=== PATIENT | female | born 1990 | race Caucasian/White ===

== ENCOUNTER → 2016-11-14 | Outpatient (CLI) | payer BC ==
[2016-11-14 11:00] LABS: CHLORIDE,CL 109 mmol/L (98-110); SODIUM,NA 140 mmol/L (136-146)
== END ==
LOC: MW.CHFP 10:14
PROVIDERS: ATTEND Physician Assistant
DX: R60.0 Localized edema (principal)
CPT/HCPCS: 36415; 80053

== ENCOUNTER 2016-11-30 16:25 | Emergency (ER) | payer BC ==
--- NOTE | 2016-11-30 17:51 | EDM.PDOC ---
ED HPI Behavioral Health - General Chief Complaint: Behavioral/Psych Stated Complaint: UNK Time Seen by Provider: 11/30/16 16:53 Source of Information: Reports: Patient Exam Limitations: Reports: No limitations - History of Present Illness INITIAL COMMENTS - FREE TEXT/NARRATIVE: HISTORY AND PHYSICAL: History of present illness: [18-year-old female with a history of depression recently switched from bupropion to Zoloft, now presents to the emergency department complaining of depression and suicidal ideation. Patient's depression has been worsening and she's been having thoughts of hurting herself. Patient had a plan to drive and get an accident intentionally or to poison herself with carbon monoxide. She has not done anything to hurt herself. Denies overdose or self injury. Denies drug abuse. Homicidal ideation. Review of systems: As per history of present illness and below otherwise all systems reviewed and negative. Past medical history: As per history of present illness and as reviewed below otherwise noncontributory. Surgical history: As per history of present illness and as reviewed below otherwise noncontributory. Social history: No reported history of drug or alcohol abuse. Family history: As per history of present illness and as reviewed below otherwise noncontributory. Physical exam: HEENT: Atraumatic, normocephalic, pupils reactive, negative for conjunctival pallor or scleral icterus, mucous membranes moist, throat clear, neck supple, nontender, trachea midline. Lungs: Clear to auscultation, breath sounds equal bilaterally, chest nontender. Heart: S1S2, regular, negative for clicks, rubs, or JVD. Abdomen: Soft, nondistended, nontender. Negative for masses or hepatosplenomegaly. Negative for costovertebral tenderness. Pelvis: Stable nontender. Genitourinary: Deferred. Rectal: Deferred. Extremities: Atraumatic, negative for cords or calf pain. Neurovascular unremarkable. Neuro: Awake, alert, oriented. Cranial nerves II through XII unremarkable. Cerebellum unremarkable. Motor and sensory unremarkable throughout. Exam nonfocal. Diagnostics: [] Therapeutics: [] Impression: [] Plan: [] Definitive disposition and diagnosis as appropriate pending reevaluation and review of above. - Related Data Allergies Allergy/AdvReac Type Severity Reaction Status Date / Time adapalene Allergy Cannot Verified 11/30/16 16:27 Remember sulfamethoxazole Allergy Swelling Verified 11/30/16 16:27 [From Bactrim] trimethoprim [From Bactrim] Allergy Swelling Verified 11/30/16 16:27 Home Medications: Home Meds Control 12/17/15 [History] ALPRAZolam [Xanax XR] 2 mg TID PRN 11/30/16 [History] QUEtiapine [SEROquel] 200 mg BEDTIME 11/30/16 [History] Sertraline [Zoloft] 100 mg DAILY 11/30/16 [History] Zolpidem [Ambien] 10 mg BEDTIME 11/30/16 [History] clonazePAM [Clonazepam] 1 mg PRN 11/30/16 [History] lamoTRIgine [Lamictal] BID 11/30/16 [History] Past Medical History Psychiatric History: Reports: Anxiety, Depression, Panic attack, Suicidal ideation - Past Surgical History HEENT Surgical History: Reports: Oral surgery GI Surgical History: Reports: Appendectomy Social & Family History - Family History Family Medical History: Noncontributory - Tobacco Use Smoking Status *Q: Never Smoker Second Hand Smoke Exposure: No - Caffeine Use Caffeine Use: Reports: Coffee - Recreational Drug Use Recreational Drug Use: No ED ROS GENERAL - Review of Systems Review Of Systems: See Below (CHPI) ED EXAM, BEHAVIORAL HEALTH - Physical Exam Exam: See Below (See history of present illness) COURSE, BEHAVIORAL HEALTH COMP - Course Vital Signs: Last Vital Signs Temp 37.0 C 11/30/16 16:49 Pulse 82 11/30/16 16:49 Resp 18 11/30/16 16:49 BP 116/57 L 11/30/16 16:49 Pulse Ox 97 11/30/16 16:49 Orders, Labs, Meds: Active Orders 24 hr Category Date Time Status ACETAMINOPHEN [CHEM] Stat Lab 11/30/16 18:05 Received COMPREHENSIVE METABOLIC PN,CMP [CHEM] Stat Lab 11/30/16 18:05 Received ETHANOL BLOOD MEDICAL [CHEM] Stat Lab 11/30/16 18:05 Received FREE T3 [REF] Stat Lab 11/30/16 18:05 Received MAGNESIUM [CHEM] Stat Lab 11/30/16 18:05 Received SALICYLATE [CHEM] Stat Lab 11/30/16 18:05 Received TSH [CHEM] Stat Lab 11/30/16 18:05 Received Laboratory Tests 03/11/30/16 11/30/16 Range/Units 18:05 18:05 18:23 WBC 4.72 (4.0-11.0) K/uL RBC 3.99 L (4.30-5.90) M/uL Hgb 11.8 L (12.0-16.0) g/dL Hct 36.1 (36.0-46.0) % MCV 90.5 (80.0-98.0) fL MCH 29.6 (27.0-32.0) pg MCHC 32.7 (31.0-37.0) g/dL RDW Std Deviation 43.2 (28.0-62.0) fl RDW Coeff of Charlie 13 (11.0-15.0) % Plt Count 218 (150-400) K/uL MPV 9.40 (7.40-12.00) fL Neut % (Auto) 54.4 (48.0-80.0) % Lymph % (Auto) 31.8 (16.0-40.0) % [place] % (Auto) 8.5 (0.0-15.0) % Eos % (Auto) 4.9 (0.0-7.0) % Baso % (Auto) 0.4 (0.0-1.5) % Neut # 2.6 (1.4-5.7) K/uL Lymph # 1.5 (0.6-2.4) K/uL [place] # 0.4 (0.0-0.8) K/uL Eos # 0.2 (0.0-0.7) K/uL Baso # 0.0 (0.0-0.1) K/uL Nucleated RBC % 0.0 /100WBC Nucleated RBCs # 0 K/uL Sodium 141 (136-146) mmol/L Potassium 4.1 (3.5-5.1) mmol/L Chloride 111 H (98-110) mmol/L Carbon Dioxide 23 (21-31) mmol/L BUN 13 (6.0-23.0) mg/dL Creatinine 0.8 (0.6-1.5) mg/dL Est Cr Clr Drug Dosing 101.81 mL/min Estimated GFR (MDRD) > 60.0 ml/min Glucose 95 (60-110) mg/dL Calcium 8.3 L (8.8-10.8) mg/dL Magnesium 1.4 L (1.5-2.3) mEq/L Total Bilirubin 0.3 (0.1-1.5) mg/dL AST 24 (5-40) IU/L ALT 22 (8-54) IU/L Alkaline Phosphatase 48 (40-150) Total Protein 6.5 (6.0-8.0) g/dL Albumin 3.5 (3.5-5.0) g/dL Globulin 3.0 (2.0-3.5) g/dL Albumin/Globulin Ratio 1.2 L (1.3-2.8) Urine Color Urine Appearance Urine pH (5.0-8.0) Ur Specific [place] (1.001-1.035) Urine Protein (NEGATIVE) mg/dL Urine Glucose (UA) (NEGATIVE) mg/dL Urine Ketones (NEGATIVE) mg/dL Urine Occult Blood (NEGATIVE) Urine Nitrite (NEGATIVE) Urine Bilirubin (NEGATIVE) Urine Urobilinogen (<2.0) EU/dL Ur Leukocyte Esterase (NEGATIVE) Urine RBC (0-2/HPF) Urine WBC (0-5/HPF) Ur Epithelial Cells (NONE-FEW) Urine Bacteria (NEGATIVE) Urine Opiates Screen NEGATIVE (NEGATIVE) Ur Oxycodone Screen NEGATIVE (NEGATIVE) Urine Methadone Screen NEGATIVE (NEGATIVE) Ur Barbiturates Screen NEGATIVE (NEGATIVE) Ur Phencyclidine Scrn NEGATIVE (NEGATIVE) Ur Amphetamine Screen NEGATIVE (NEGATIVE) U Methamphetamines Scrn NEGATIVE (NEGATIVE) U Benzodiazepines Scrn POSITIVE (NEGATIVE) U Cocaine Metab Screen NEGATIVE (NEGATIVE) U Marijuana (THC) Screen POSITIVE (NEGATIVE) Ethyl Alcohol < 10.0 mg/dL 11/30/16 Range/Units 18:23 WBC (4.0-11.0) K/uL RBC (4.30-5.90) M/uL Hgb (12.0-16.0) g/dL Hct (36.0-46.0) % MCV (80.0-98.0) fL MCH (27.0-32.0) pg MCHC (31.0-37.0) g/dL RDW Std Deviation (28.0-62.0) fl RDW Coeff of Charlie (11.0-15.0) % Plt Count (150-400) K/uL MPV (7.40-12.00) fL Neut % (Auto) (48.0-80.0) % Lymph % (Auto) (16.0-40.0) % [place] % (Auto) (0.0-15.0) % Eos % (Auto) (0.0-7.0) % Baso % (Auto) (0.0-1.5) % Neut # (1.4-5.7) K/uL Lymph # (0.6-2.4) K/uL [place] # (0.0-0.8) K/uL Eos # (0.0-0.7) K/uL Baso # (0.0-0.1) K/uL Nucleated RBC % /100WBC Nucleated RBCs # K/uL Sodium (136-146) mmol/L Potassium (3.5-5.1) mmol/L Chloride (98-110) mmol/L Carbon Dioxide (21-31) mmol/L BUN (6.0-23.0) mg/dL Creatinine (0.6-1.5) mg/dL Est Cr Clr Drug Dosing mL/min Estimated GFR (MDRD) ml/min Glucose (60-110) mg/dL Calcium (8.8-10.8) mg/dL Magnesium (1.5-2.3) mEq/L Total Bilirubin (0.1-1.5) mg/dL AST (5-40) IU/L ALT (8-54) IU/L Alkaline Phosphatase (40-150) Total Protein (6.0-8.0) g/dL Albumin (3.5-5.0) g/dL Globulin (2.0-3.5) g/dL Albumin/Globulin Ratio (1.3-2.8) Urine Color YELLOW Urine Appearance CLEAR Urine pH 6.0 (5.0-8.0) Ur Specific [place] 1.025 (1.001-1.035) Urine Protein NEGATIVE (NEGATIVE) mg/dL Urine Glucose (UA) NEGATIVE (NEGATIVE) mg/dL Urine Ketones NEGATIVE (NEGATIVE) mg/dL Urine Occult Blood SMALL H (NEGATIVE) Urine Nitrite NEGATIVE (NEGATIVE) Urine Bilirubin NEGATIVE (NEGATIVE) Urine Urobilinogen 1.0 (<2.0) EU/dL Ur Leukocyte Esterase NEGATIVE (NEGATIVE) Urine RBC 0-2 (0-2/HPF) Urine WBC 1-3 (0-5/HPF) Ur Epithelial Cells FEW (NONE-FEW) Urine Bacteria 1+ H (NEGATIVE) Urine Opiates Screen (NEGATIVE) Ur Oxycodone Screen (NEGATIVE) Urine Methadone Screen (NEGATIVE) Ur Barbiturates Screen (NEGATIVE) Ur Phencyclidine Scrn (NEGATIVE) Ur Amphetamine Screen (NEGATIVE) U Methamphetamines Scrn (NEGATIVE) U Benzodiazepines Scrn (NEGATIVE) U Cocaine Metab Screen (NEGATIVE) U Marijuana (THC) Screen (NEGATIVE) Ethyl Alcohol mg/dL Medications Discontinued Medications Generic Name Dose Route Start Last Admin Trade Name Freq PRN Reason Stop Dose Admin Alprazolam 1 mg 11/30/16 17:59 Xanax PO 11/30/16 18:00 ONETIME ONE Alprazolam 2 mg 11/30/16 18:35 Xanax PO 11/30/16 18:36 ONETIME ONE Alprazolam Confirm 11/30/16 18:46 11/30/16 18:49 Xanax Administered 11/30/16 18:47 1 mg Dose Administration 1 mg .ROUTE .STK-MED ONE Alprazolam 1 mg 11/30/16 18:48 Xanax PO 11/30/16 18:49 NOW ONE Medical Clearance: 11/30/16 18:55 Signs and symptoms consistent with worsening depression and suicidal ideation. Vital signs unremarkable. Patient well-appearing except depressed and flat affect. Nonfocal neurologic exam. No evidence of self injury and medically stable. Case discussed with Dr. Cash psychiatrist at [facility]. Dr. Cash aware of history and findings accept patient in transfer. Case also discussed with Dr. Ferguson emergency department M.D. accept patient in transfer to the emergency. Medical clearance pending Departure - Departure Time of Disposition: 18:58 Disposition: DC/Tfer to Psych Hosp/Unit 65 Condition: fair Clinical Impression: Depression, Suicidal ideation - My Orders Last 24 Hours: My Active Orders 11/30/16 18:05 ACETAMINOPHEN [CHEM] Stat COMPREHENSIVE METABOLIC PN,CMP [CHEM] Stat ETHANOL BLOOD MEDICAL [CHEM] Stat FREE T3 [REF] Stat MAGNESIUM [CHEM] Stat SALICYLATE [CHEM] Stat TSH [CHEM] Stat - Assessment/Plan Last 24 Hours: My Active Orders 11/30/16 18:05 ACETAMINOPHEN [CHEM] Stat COMPREHENSIVE METABOLIC PN,CMP [CHEM] Stat ETHANOL BLOOD MEDICAL [CHEM] Stat FREE T3 [REF] Stat MAGNESIUM [CHEM] Stat SALICYLATE [CHEM] Stat TSH [CHEM] Stat
[2016-11-30] MEDS: ALPRAZolam 0.5 MG Tab ONE (18:49)
[2016-11-30 18:50] LABS: CHLORIDE,CL 111 mmol/L (98-110); SODIUM,NA 141 mmol/L (136-146)
[2016-11-30 18:55] LABS: ACETAMINOPHEN < 3.0 ug/mL
[2016-11-30] MEDS: ALPRAZolam 0.25 MG Tab PO ONE ×2 (19:06)
[2016-11-30] MEDS: ALPRAZolam 0.5 MG Tab PO ONE (19:06)
[2016-11-30 19:13] VITALS: BP 124/70
== END 2016-11-30 19:03 ==
LOC: MW.ED 16:25
DX: F32.9 Major depressive disorder, single episode, unspecified (principal); R45.851 Suicidal ideations; Z88.2 Allergy status to sulfonamides; Z88.6 Allergy status to analgesic agent; Z79.899 Other long term (current) drug therapy; Z90.49 Acquired absence of other specified parts of digestive tract; Z90.89 Acquired absence of other organs; Z98.890 Other specified postprocedural states
CPT/HCPCS: 36415; 80053; 80305; 81001; 83735; 84443; 84481; 85025; 99285; A9270; G0480; 99284

== ENCOUNTER 2016-12-06 17:10 | Emergency (ER) | payer BC ==
--- NOTE | 2016-12-06 17:46 | EDM.PDOC ---
ED HPI GENERAL MEDICAL PROBLEM - General Stated Complaint: SEIZURE Time Seen by Provider: 12/06/16 17:35 Source of Information: Reports: Patient, Family History Limitations: Reports: No limitations - History of Present Illness INITIAL COMMENTS - FREE TEXT/NARRATIVE: HISTORY AND PHYSICAL: History of present illness: Patient is a 26-year-old female who presents to the emergency department via ambulance after she had a seizure that was witnessed by her . When I went in to talk to the patient and her was not there and she really cannot give me much history. She thinks that when she went outside to smoke. She remembers feeling very lightheaded after that he does not remember anything. Her told her that he held her down and she did not fall or hit her head. She did her time. No incontinence of urine or stool. The episode lasted about a minute and she states her said that she was shaking. She has never had a seizure before. She recently was transferred from here to [facility] for suicidal ideation and states that she was discharged with the medications but she cannot tell me what she is taking or what is new. She still feels like she is very lightheaded and is about to "pass out". She denies any pain. She states she used to self medicate with marijuana before she was transferred to [facility] but has not "touched it" since then. No other drug use. Review of systems: As per history of present illness and below otherwise all systems reviewed and negative. Past medical history: As per history of present illness and as reviewed below otherwise noncontributory. Surgical history: As per history of present illness and as reviewed below otherwise noncontributory. Social history: No reported history of drug or alcohol abuse. Family history: As per history of present illness and as reviewed below otherwise noncontributory. Physical exam: HEENT: No evidence of trauma to the scalp or face. Pupils are equal and reactive with normal extraocular muscles. She has a small abrasion bite floyd on the tip of her time no other trauma to the mouth. No cervical spine tenderness. Normal range of motion of the neck. Lungs: Clear to auscultation, breath sounds equal bilaterally, chest nontender. Heart: S1S2, regular, negative for clicks, rubs, or JVD. Abdomen: Soft, nondistended, nontender. Negative for masses or hepatosplenomegaly. Negative for costovertebral tenderness. Pelvis: Stable nontender. Genitourinary: Deferred. Rectal: Deferred. Extremities: Atraumatic, negative for cords or calf pain. Neurovascular unremarkable. Neuro: Awake, alert, oriented. Cranial nerves II through XII unremarkable. Cerebellum unremarkable. Motor and sensory unremarkable throughout. Exam nonfocal. Diagnostics: CBC, CMP, EKG, head CT Impression: Seizure, probable medication related Plan: I was able to get some medical records from [facility] and [facility]. She saw the patient on the and made some changes to the patient's medications. Apparently she told her she was going to take clonazepam or Xanax anymore. She decreased her limit the dose DC Seroquel and started lithium 150 mg twice a day. I do not know if the seizures related to lithium or possible benzodiazepine withdrawal. The patient really cannot tell me how much of the Xanax she has been taking her when she stopped. Patient stated she has not had any of her Xanax for at least 2 weeks I do not believe this is related to benzodiazepine withdrawal. More likely it is related to the recent start of the lithium although I did tell her to discontinue use of this, contact [facility] and Dr. Bautista to work out medication changes and have neurologic evaluation of her seizure. Definitive disposition and diagnosis as appropriate pending reevaluation and review of above. Abdomen Pain Score (Numeric/FACES): 4 Tongue Pain Score (Numeric/FACES): 4 - Related Data Allergies Allergy/AdvReac Type Severity Reaction Status Date / Time adapalene Allergy Cannot Verified 12/06/16 17:15 Remember sulfamethoxazole Allergy Swelling Verified 12/06/16 17:15 [From Bactrim] trimethoprim [From Bactrim] Allergy Swelling Verified 12/06/16 17:15 Home Meds: Home Meds Control 12/17/15 [History] lamoTRIgine [Lamictal] 50 mg PO DAILY 11/30/16 [History] Paulina Carbonate 150 mg PO BID 12/06/16 [History] Propranolol [Inderal] 20 mg PO BID PRN 12/06/16 [History] hydrOXYzine HCl [Atarax] 25 mg PO BEDTIME PRN 12/06/16 [History] hydrOXYzine HCl [Atarax] 25 mg PO BID 12/06/16 [History] Past Medical History [employer] History: Reports: Psychiatric History: Reports: Anxiety, Depression, Panic attack, Suicidal ideation - Past Surgical History HEENT Surgical History: Reports: Oral surgery GI Surgical History: Reports: Appendectomy Social & Family History - Family History Family Medical History: Noncontributory - Tobacco Use Smoking Status *Q: Former Smoker Years of Tobacco use: 10 Packs/Tins Daily: 0.5 Second Hand Smoke Exposure: No - Caffeine Use Caffeine Use: Reports: Coffee, Soda, Tea - Recreational Drug Use Recreational Drug Use: Yes Drug Use in Last 12 Months: Yes Recreational Drug Type: Reports: Marijuana/Hashish Recreational Drug Use Frequency: Weekly ED ROS GENERAL - Review of Systems Review Of Systems: ROS reveals no pertinent complaints other than HPI. ED EXAM, GENERAL - Physical Exam Exam: See Below (See HPI) Course - Vital Signs Last Recorded V/S: Last Vital Signs Temp 37.2 C 12/06/16 19:20 Pulse 69 12/06/16 19:20 Resp 16 12/06/16 19:20 BP 113/56 L 12/06/16 19:20 Pulse Ox 98 12/06/16 19:20 - Orders/Labs/Meds Orders: Active Orders 24 hr Category Date Time Status EKG Documentation Completion [RC] STAT Care 12/06/16 17:24 Active Head wo Cont [CT] Stat Exams 12/06/16 17:49 Ordered LITHIUM [REF] Stat Lab 12/06/16 18:12 Ordered Labs: Laboratory Tests 12/06/16 12/06/16 12/06/16 Range/Units 18:18 18:18 18:18 WBC 7.12 (4.0-11.0) K/uL RBC 4.07 L (4.30-5.90) M/uL Hgb 12.1 (12.0-16.0) g/dL Hct 36.5 (36.0-46.0) % MCV 89.7 (80.0-98.0) fL MCH 29.7 (27.0-32.0) pg MCHC 33.2 (31.0-37.0) g/dL RDW Std Deviation 42.2 (28.0-62.0) fl RDW Coeff of Charlie 13 (11.0-15.0) % Plt Count 240 (150-400) K/uL MPV 9.20 (7.40-12.00) fL Neut % (Auto) 64.5 (48.0-80.0) % Lymph % (Auto) 22.3 (16.0-40.0) % [place] % (Auto) 8.7 (0.0-15.0) % Eos % (Auto) 4.1 (0.0-7.0) % Baso % (Auto) 0.4 (0.0-1.5) % Neut # (Auto) 4.6 (1.4-5.7) K/uL Lymph # (Auto) 1.6 (0.6-2.4) K/uL [place] # (Auto) 0.6 (0.0-0.8) K/uL Eos # (Auto) 0.3 (0.0-0.7) K/uL Baso # (Auto) 0.0 (0.0-0.1) K/uL Nucleated RBC % 0.0 /100WBC Nucleated RBCs # 0 K/uL Sodium 141 (136-146) mmol/L Potassium 4.2 (3.5-5.1) mmol/L Chloride 111 H (98-110) mmol/L Carbon Dioxide 22 (21-31) mmol/L BUN 15 (6.0-23.0) mg/dL Creatinine 0.9 (0.6-1.5) mg/dL Est Cr Clr Drug Dosing 90.50 mL/min Estimated GFR (MDRD) > 60.0 ml/min Glucose 92 (60-110) mg/dL Calcium 9.1 (8.8-10.8) mg/dL Total Bilirubin 0.2 (0.1-1.5) mg/dL AST 21 (5-40) IU/L ALT 26 (8-54) IU/L Alkaline Phosphatase 52 (40-150) Total Protein 6.7 (6.0-8.0) g/dL Albumin 3.8 (3.5-5.0) g/dL Globulin 2.9 (2.0-3.5) g/dL Albumin/Globulin Ratio 1.3 (1.3-2.8) HCG, Qual NEGATIVE (NEG) Departure - Departure Time of Disposition: 19:54 Disposition: Home, Self-Care 01 Condition: good Clinical Impression: Seizure Additional Instructions: Please discontinue use of the lithium. Contact [facility] tomorrow about your symptoms today and possible medication change. Also you should contact Dr. Bautista for appointment for further evaluation of your seizure. Rest and stay hydrated. Return for any significant change or worsening of your symptoms. - My Orders Last 24 Hours: My Active Orders 12/06/16 17:24 EKG Documentation Completion [RC] STAT 12/06/16 17:49 Head wo Cont [CT] Stat 12/06/16 18:12 LITHIUM [REF] Stat - Assessment/Plan Last 24 Hours: My Active Orders 12/06/16 17:24 EKG Documentation Completion [RC] STAT 12/06/16 17:49 Head wo Cont [CT] Stat 12/06/16 18:12 LITHIUM [REF] Stat
[2016-12-06 18:48] LABS: CHLORIDE,CL 111 mmol/L (98-110); SODIUM,NA 141 mmol/L (136-146)
[2016-12-06 20:34] VITALS: BP 115/63
--- NOTE | 2016-12-07 13:36 | CT ---
EXAM DATE: 12/06/16 PATIENT'S AGE: 26 Patient: JESSENIA HAMMER Facility: [place], [place] Site . Site : [id number] Study: CT Head [id number] 7:15:04 PM Ordering Physician: Doctor Salazar Final Report: INDICATION: Seizure TECHNIQUE: CT head without contrast. COMPARISON: None FINDINGS: CSF spaces: Within normal limits for age. Brain parenchyma: The ross-white differentiation is normal. No sign of mass, hemorrhage, or midline shift. Skull base and calvarium: The visualized paranasal sinuses and mastoid air cells demonstrate no acute or significant findings. The visualized orbits are grossly unremarkable. No skull fractures. IMPRESSION: Unremarkable noncontrast head CT. Dictated by Claudine Salamanca MD @ Dec 06 2016 7:34PM (Electronic Signature) Report Signed by Proxy and Original Signed Document filed in the Medical Record. JOE
== END 2016-12-06 20:20 | disposition home or self-care (01) ==
LOC: MW.ED 17:10
DX: R56.9 Unspecified convulsions (principal); F41.0 Panic disorder [episodic paroxysmal anxiety]; F32.9 Major depressive disorder, single episode, unspecified; Z87.891 Personal history of nicotine dependence; Z90.49 Acquired absence of other specified parts of digestive tract; Z79.899 Other long term (current) drug therapy; Z88.2 Allergy status to sulfonamides; Z88.8 Allergy status to other drugs, medicaments and biological substances
CPT/HCPCS: 36415; 70450; 70450-26; 80053; 80178; 84703; 85025; 93005; 99284; 99285-25

== ENCOUNTER → 2016-12-18 | Outpatient (CLI) | payer BC ==
[~2016-12-18] MED LIST: Gadobutrol 7.5 mMOL/7.5 ML SDV IVPUSH STA
--- NOTE | 2016-12-19 09:43 | MR ---
EXAMINATION: MRI of the brain with and without contrast TECHNIQUE: Multiplanar and multisequence imaging of the brain without and following the administrati on of 7.5 mL of Gadavist. HISTORY: Unspecified convulsions.. FINDINGS: Cerebral hemispheres and the deep nuclei are without hemorrhage, edema, gliosis, enhancement or atro phy. 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 This is bright on T2 with high FLAIR signal. Ther e is thin smooth peripheral enhancement. No internal diffusion restriction. There is peripheral calc ification noted on the recent CT. No extraaxial collections or hemorrhage. The ventricular system is of normal size and configuration without hydrocephalus. The brainstem and cerebellum are without hemorrhage, mass, edema, gliosis, en hancement or atrophy. The carotid basilar artery flow voids are intact. The otomastoid airspaces are clear. No internal auditory canal or cerebellopontine angle masses or enhancement. There is mild mucosal thickening within the paranasal sinuses. The mastoid air cells are clear. The globes, optic nerves, orbital ap ices, optic chiasm, optic tracts, and visual cortices are unremarkable. Pituitary and sella turcica are unremarkable. No meningeal enhancement. The craniocervical junctio n is unremarkable without Chiari malformation. No siderosis or evidence of vascular malformation. The calvarium is intact. IMPRESSION: 1. 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 2. Mild mucosal thickening within the paranasal sinuses. 3. Otherwise no acute intracranial findings.
== END ==
LOC: MW.MRI 14:07
PROVIDERS: ATTEND Psychiatry & Neurology Neuromuscular Medicine
DX: R56.9 Unspecified convulsions (principal); E34.8 Other specified endocrine disorders; J34.89 Other specified disorders of nose and nasal sinuses
CPT/HCPCS: 70553; A9585

== ENCOUNTER → 2017-01-09 | Outpatient (CLI) | payer BC | LOC: MW.RT 07:04 | PROVIDERS: ATTEND Psychiatry & Neurology Neuromuscular Medicine | DX: R56.9 Unspecified convulsions (principal) | CPT/HCPCS: 95819 ==

== ENCOUNTER 2018-03-18 06:52 | Inpatient (IN) | payer BC ==
[2018-03-18] MEDS ORDERED: Butorphanol 1 MG/ML SDV IVPUSH PRN (08:10)
[2018-03-18] MEDS ORDERED: Lidocaine 1% 50 ML MDV INJECT PRN (08:10)
[2018-03-18] MEDS ORDERED: Misoprostol 200 MCG Tab PO PRN (08:10)
[2018-03-18] MEDS ORDERED: Carboprost Tromethamine 250 MCG/1 ML Amp IM PRN (08:10)
[2018-03-18] MEDS ORDERED: Nalbuphine 10 MG/ML 10 ML MDV IVPUSH PRN (08:10)
[2018-03-18] MEDS ORDERED: Tranexamic Acid 1,000 MG in Sodium Chloride 0.9% 100 ML IV PRN (08:10)
[2018-03-18] MEDS ORDERED: Sodium Chloride 0.9% 10 ML Syringe FLUSH PRN (08:10)
[2018-03-18] MEDS ORDERED: Methylergonovine 0.2 MG/1 ML Amp IM PRN (08:10)
[2018-03-18] MEDS ORDERED: Water For Irrigation,Sterile 1,000 ML Container IRR PRN (08:10)
[2018-03-18] MEDS ORDERED: Sodium Chloride 0.9% 2.5 ML Syringe FLUSH PRN (08:10)
[2018-03-18] MEDS ORDERED: Oxytocin/0.9 % Sodium Chloride 30 UNIT/500 ML BAG IV SCH (08:15)
[2018-03-18] MEDS: Lactated Ringers 1,000 ML IV SCH ×2 (08:38→10:03)
--- NOTE | 2018-03-18 09:14 | PCM.PREANE ---
Preanesthetic Assessment - Anesthesia/Transfusion/Family Hx Anesthesia History: Prior Anesthesia Without Reaction Transfusion History: No Prior Transfusion(s) - Review of Systems General: No Symptoms Pulmonary: No Symptoms Cardiovascular: No Symptoms Gastrointestinal: No Symptoms Neurological: No Symptoms Other: Reports: None - Physical Assessment Height: 5 ft 6.93 in Weight: 94.347 kg ASA Class: 2 Mental Status: Alert & Oriented x3 Airway Class: Mallampati = 2 Dentition: Reports: Normal Dentition Thyro-Mental Finger Breadths: 3 Mouth Opening Finger Breadths: 3 ROM/Head Extension: Full Lungs: Clear to Auscultation, Normal Respiratory Effort Cardiovascular: Regular Rate, Regular Rhythm - Lab Values: Laboratory Last Values WBC 17.32 K/uL (4.0-11.0) H 03/18/18 08:25 RBC 3.85 M/uL (4.30-5.90) L 03/18/18 08:25 Hgb 11.4 g/dL (12.0-16.0) L 03/18/18 08:25 Hct 35.0 % (36.0-46.0) L 03/18/18 08:25 MCV 90.9 fL (80.0-98.0) 03/18/18 08:25 MCH 29.6 pg (27.0-32.0) 03/18/18 08:25 MCHC 32.6 g/dL (31.0-37.0) 03/18/18 08:25 RDW Std Deviation 44.1 fl (28.0-62.0) 03/18/18 08:25 RDW Coeff of Charlie 14 % (11.0-15.0) 03/18/18 08:25 Plt Count 161 K/uL (150-400) 03/18/18 08:25 MPV 10.00 fL (7.40-12.00) 03/18/18 08:25 Nucleated RBC % 0.0 /100WBC 03/18/18 08:25 Nucleated RBCs # 0 K/uL 03/18/18 08:25 - Allergies Allergies/Adverse Reactions: Allergies Allergy/AdvReac Type Severity Reaction Status Date / Time adapalene Allergy Cannot Verified 12/06/16 17:15 Remember sulfamethoxazole Allergy Swelling Verified 12/06/16 17:15 [From Bactrim] trimethoprim [From Bactrim] Allergy Swelling Verified 12/06/16 17:15 - Acknowledgements Anesthesia Type Planned: Epidural Pt an Appropriate Candidate for the Planned Anesthesia: Yes Alternatives and Risks of Anesthesia Discussed w Pt/Guardian: Yes Pt/Guardian Understands and Agrees with Anesthesia Plan: Yes PreAnesthesia Questionnaire HEENT History: Reports: None Cardiovascular History: Reports: None Respiratory History: Reports: None Gastrointestinal History: Reports: GERD Genitourinary History: Reports: None 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: : 5 Para: 3 LMP (Approximate): Musculoskeletal History: Reports: None Neurological History: Reports: None Psychiatric History: Reports: Anxiety, Depression, Panic Attack, Suicidal Ideation Endocrine/Metabolic History: Reports: Obesity/BMI 30+ Hematologic History: Reports: None Immunologic History: Reports: None Oncologic (Cancer) History: Reports: None Dermatologic History: Reports: None - Infectious Disease History Infectious Disease History: Reports: None - Past Surgical History HEENT Surgical History: Reports: Oral Surgery - HOME MEDS Home Medications: Home Meds Escitalopram [Lexapro] 10 mg PO DAILY 03/18/18 [History] Omeprazole Magnesium [Prilosec Otc] 20 mg PO DAILY PRN 03/18/18 [History] Vit #108/Iron/FA [ One Tablet] 1 each PO DAILY 03/18/18 [ History] Ranitidine [Zantac] 75 mg PO DAILY PRN 03/18/18 [History] busPIRone [Buspar] 10 mg PO DAILY PRN 03/18/18 [History] cloNIDine [Catapres] 0.2 mg PO BEDTIME 03/18/18 [History] - CURRENT (IN HOUSE) MEDS Current Meds: Current Medications Butorphanol Tartrate (Stadol) 1 mg IVPUSH Q1H PRN PRN Reason: Pain Carboprost Tromethamine (Hemabate Ds) 250 mcg IM ASDIRECTED PRN PRN Reason: Post Hemorrhage Lactated Ringer's (Ringers, Lactated) 1,000 mls @ 150 mls/hr IV ASDIRECTED [facility] Last Admin: 03/18/18 08:38 Dose: 150 mls/hr Oxytocin/Sodium Chloride (Oxytocin 30 Unit/500 Ml-Ns) 30 unit in 500 mls @ 250 mls/hr IV TITRATE [facility] Tranexamic Acid 1,000 mg/ (Sodium Chloride) 110 mls @ 660 mls/hr IV ONETIME PRN PRN Reason: Bleeding Lidocaine HCl (Xylocaine 1%) 50 ml INJECT .ONCE PRN PRN Reason: Laceration repair Methylergonovine Maleate (Methergine) 0.2 mg IM ASDIRECTED PRN PRN Reason: Post Hemorrhage Misoprostol (Cytotec) 200 mcg PO .ONCE PRN PRN Reason: Post Hemorrhage Nalbuphine HCl (Nubain) 10 mg IVPUSH Q1H PRN PRN Reason: Pain (severe 7-10) Sodium Chloride (Saline Flush) 10 ml FLUSH ASDIRECTED PRN PRN Reason: Keep Vein Open Sodium Chloride (Saline Flush) 2.5 ml FLUSH ASDIRECTED PRN PRN Reason: Keep Vein Open Sterile Water (Sterile Water For Irrigation) 1,000 ml IRR ASDIRECTED PRN PRN Reason: delivery
[2018-03-18] MEDS ORDERED: Docusate Sodium 100 MG Cap PO PRN (12:38)
[2018-03-18] MEDS ORDERED: Benzocaine/Menthol 20%-0.5% Spray 78 GM Cannister TOP PRN (12:38)
[2018-03-18] MEDS ORDERED: Witch Hazel Medicated Pads 40/Jar TOP PRN (12:38)
[2018-03-18] MEDS ORDERED: Ibuprofen 400 MG Tab PO PRN (12:38)
[2018-03-18] MEDS ORDERED: Acetaminophen 500 MG Tab PO PRN (12:38)
[2018-03-18] MEDS ORDERED: Bisacodyl 10 MG Supp RECTAL PRN (12:38)
[2018-03-18] MEDS ORDERED: Lanolin 100% Cream 7 GM Tube TOP PRN (12:38)
[2018-03-18] MEDS: Ibuprofen 800 MG Tab PO PRN ×2 (13:01→19:05)
--- NOTE | 2018-03-18 13:50 | OR ---
SURGEON: Gisela Florence MD DATE OF PROCEDURE: 03/18/2018 PREOPERATIVE DIAGNOSES: 1. Term intrauterine at 39 weeks and 1 day. 2. Spontaneous labor. POSTOPERATIVE DIAGNOSES: 1. Term intrauterine at 39 weeks and 1 day. 2. Spontaneous labor. 3. Delivered. PROCEDURE: Spontaneous vaginal delivery with repair of Ist degree perineal laceration. ANESTHESIA: Epidural. ESTIMATED BLOOD LOSS: 150 mL. COMPLICATIONS: None. DISPOSITION: Mother and baby stable in Labor and Delivery room, bonding. FINDINGS: Female , weight 3240 g, score 7 and 8 at 1 and 5 minutes respectively. Grossly normal placenta with 3-vessel cord. First-degree perineal laceration. Right lateral wall cyst measuring 2 x 2 cm, stable from period. BRIEF HISTORY: The patient is a 27-year-old G5, P2-0-0-2, who presented to Labor and Delivery this morning at 39 weeks and 1 day in active labor. She reported that she had contractions since 3:00 a.m. Denied vaginal bleeding, leakage of fluid, and reported movement. On arrival to Labor and Delivery, she was found to be 4 cm dilated, 80% effaced, station -2. Her care was otherwise complicated by depression with anxiety and ADHD, her symptoms were controlled on antidepressants and she has remained stable under the care of a psychiatrist. Also, of note, was that she did have a right lateral wall vaginal cyst, which was discovered at her during her last delivery and the cyst remained stable without increase in size through the period. GBS status was negative. She was admitted and artificial rupture of membrane was performed approximately 3 hours after presentation to Labor and Delivery and at that time, she was 5 to 6 cm dilated, 90% effaced, station -1 with clear fluid noted. She requested and received epidural for pain management. She then progressed to full dilatation and with increasing rectal pressure, she started pushing. heart tracing was alternated between category 1 and category 2. She pushed well and was set up for delivery in modified dorsal lithotomy position. PROCEDURE IN DETAIL: She had a spontaneous vaginal delivery of a live female in direct occipital anterior position, nuchal cord x1, which was reduced easily. Clear amniotic fluid at delivery. Anterior and posterior shoulders and the rest of the baby were delivered without difficulty. Baby was vigorous and cried spontaneously at . The baby was delivered onto the maternal abdomen with the nursery nurse attendant to her, stimulating and drying her. Delayed cord clamping was observed and the cord was subsequently cut by the father of the baby. With delivery of the infant, oxytocin infusion, titration was started for active management of third stage of labor. Cord blood and gas samples were obtained. The placenta was delivered by controlled cord traction, appeared to be complete and intact. Examination of the perineum revealed a small first-degree vaginal laceration and one hemostatic suture was placed with a 3-0 Vicryl. The vaginal cyst was found to be intact with no increase in size noted. Uterine massage was performed. The uterus was found to be well contracted. The patient tolerated the procedure well. Sponge, instrument, and needle counts were correct at the end of the delivery. ADUMVIV / MODL /[id number] MTDD
[2018-03-18] MEDS: oxyCODONE 5 MG Tab PO PRN ×3 (13:56→19:05)
--- NOTE | 2018-03-18 14:03 | PCM.DEL ---
L & D Note - General Info Date of Service: 03/18/18 - Delivery Note Labor: Spontaneous, Augmented by ARM Infant Delivery Mode: Spontaneous Presentation: Left Occiput Anterior (NILAM) Nuchal Cord: Present, Reduced Prep: Other Anesthesia Type: Epidural Amniotic Fluid Description: Clear Episiotomy Type: None Laceration: 1st Degree Suture type: Vicryl Suture size: 3-0 Placenta: Intact, Spontaneous Estimated Blood Loss: 150 Score 1 min: 7 Score 5 min: 8 Second Stage Interventions: Reports: Pushing Ineffectively, Pushing, Pulls Own Legs Back - General Info Date of Service: 03/18/18 - Patient Data Weight - Most Recent: 458 lb 8.984 oz Lab Results Last 24 Hours: Laboratory Results - last 24 hr 03/18/18 03/18/18 03/18/18 Range/Units 08:25 08:25 12:14 WBC 17.32 H (4.0-11.0) K/uL RBC 3.85 L (4.30-5.90) M/uL Hgb 11.4 L (12.0-16.0) g/dL Hct 35.0 L (36.0-46.0) % MCV 90.9 (80.0-98.0) fL MCH 29.6 (27.0-32.0) pg MCHC 32.6 (31.0-37.0) g/dL RDW Std Deviation 44.1 (28.0-62.0) fl RDW Coeff of Charlie 14 (11.0-15.0) % Plt Count 161 (150-400) K/uL MPV 10.00 (7.40-12.00) fL Nucleated RBC % 0.0 /100WBC Nucleated RBCs # 0 K/uL Cord ABG pH 7.341 (7.18-7.38) Cord ABG Base Excess -1 H (-10--2) Cord VBG pH 7.452 H (7.25-7.45) Cord VBG Base Excess -2 (-10--2) Blood Type O POSITIVE Antibody Screen NEGATIVE Med Orders - Current: Current Medications Acetaminophen (Tylenol Extra Strength) 500 mg PO Q4H PRN PRN Reason: Pain Acetaminophen (Tylenol Extra Strength) 1,000 mg PO Q4H PRN PRN Reason: Pain Benzocaine/Menthol (Dermoplast Pain Relief 20%-0.5% [place]) 78 gm TOP ASDIRECTED PRN PRN Reason: Perineal Comfort Measure Last Admin: 03/18/18 13:00 Dose: 1 canister Bisacodyl (Dulcolax) 10 mg RECTAL .ONCE PRN PRN Reason: Constipation Docusate Sodium (Colace) 100 mg PO BID PRN PRN Reason: Constipation Last Admin: 03/18/18 13:01 Dose: 100 mg Emollient Ointment (Lansinoh Hpa) 0 gm TOP ASDIRECTED PRN PRN Reason: Sore Nipples Ibuprofen (Motrin) 400 mg PO Q4H PRN PRN Reason: Pain Ibuprofen (Motrin) 800 mg PO Q6H PRN PRN Reason: Pain Last Admin: 03/18/18 13:01 Dose: 800 mg Oxycodone HCl (Oxycodone) 5 mg PO Q2H PRN PRN Reason: Pain Last Admin: 03/18/18 13:56 Dose: 5 mg Witch Manisha (Tucks) 1 pad TOP ASDIRECTED PRN PRN Reason: comfort care Last Admin: 03/18/18 13:00 Dose: 1 tub Discontinued Medications Butorphanol Tartrate (Stadol) 1 mg IVPUSH Q1H PRN PRN Reason: Pain Carboprost Tromethamine (Hemabate Ds) 250 mcg IM ASDIRECTED PRN PRN Reason: Post Hemorrhage Lactated Ringer's (Ringers, Lactated) 1,000 mls @ 150 mls/hr IV ASDIRECTED [facility] Last Admin: 03/18/18 10:03 Dose: 150 mls/hr Oxytocin/Sodium Chloride (Oxytocin 30 Unit/500 Ml-Ns) 30 unit in 500 mls @ 250 mls/hr IV TITRATE [facility] Last Admin: 03/18/18 12:16 Dose: 250 mls/hr Tranexamic Acid 1,000 mg/ (Sodium Chloride) 110 mls @ 660 mls/hr IV ONETIME PRN PRN Reason: Bleeding Fentanyl/Bupivacaine HCl (Bnjcufik-Sfomq-Eb 2 Mcg/Ml-0.125%) Confirm Administered Dose 100 mls @ as directed EP .STK-MED ONE Stop: 03/18/18 09:17 Lidocaine HCl (Xylocaine 1%) 50 ml INJECT .ONCE PRN PRN Reason: Laceration repair Methylergonovine Maleate (Methergine) 0.2 mg IM ASDIRECTED PRN PRN Reason: Post Hemorrhage Misoprostol (Cytotec) 200 mcg PO .ONCE PRN PRN Reason: Post Hemorrhage Nalbuphine HCl (Nubain) 10 mg IVPUSH Q1H PRN PRN Reason: Pain (severe 7-10) Sodium Chloride (Saline Flush) 10 ml FLUSH ASDIRECTED PRN PRN Reason: Keep Vein Open Sodium Chloride (Saline Flush) 2.5 ml FLUSH ASDIRECTED PRN PRN Reason: Keep Vein Open Sterile Water (Sterile Water For Irrigation) 1,000 ml IRR ASDIRECTED PRN PRN Reason: delivery Last Admin: 03/18/18 12:10 Dose: 1,000 ml - Problem List & Annotations (1) Vaginal delivery SNOMED Code(s): 061898845 Code(s): O80 - ENCOUNTER FOR FULL-TERM UNCOMPLICATED DELIVERY Status: Acute Current Visit: Yes - Problem List Review Problem List Initiated/Reviewed/Updated: Yes - My Orders Last 24 Hours: My Active Orders 03/18/18 08:10 Heart Tones [RC] CONTINUOUS Non Stress Test [RC] PER UNIT ROUTINE May Shower [RC] ASDIRECTED Notify Provider [RC] PRN Up ad Vy [RC] ASDIRECTED Vaginal Exam [RC] PRN Vital Signs [RC] PER UNIT ROUTINE 03/18/18 12:38 Patient Status [ADT] Routine May Shower [RC] ASDIRECTED Up ad Vy [RC] ASDIRECTED Vital Signs [RC] PER UNIT ROUTINE Acetaminophen [Tylenol Extra Strength] 1,000 mg PO Q4H PRN Acetaminophen [Tylenol Extra Strength] 500 mg PO Q4H PRN Benzocaine/Menthol [Dermoplast Pain Relief 20%-0.5% [place]] 78 gm TOP ASDIRECTED PRN Bisacodyl [Dulcolax] 10 mg RECTAL .ONCE PRN Docusate Sodium [Colace] 100 mg PO BID PRN Ibuprofen [Motrin] 400 mg PO Q4H PRN Ibuprofen [Motrin] 800 mg PO Q6H PRN Lanolin [Lansinoh HPA] See Dose Instructions TOP ASDIRECTED PRN Witch Manisha [Tucks] 1 pad TOP ASDIRECTED PRN oxyCODONE 5 mg PO Q2H PRN Assess Lochia [WOMSER] Per Unit Routine Assess Uterine Involution [WOMSER] Per Unit Routine Breast Pump [WOMSER] Per Unit Routine Perineal Care [OM.PC] Per Unit Routine Peripheral IV Discontinue [OM.PC] Routine Resuscitation Status Routine 03/18/18 Dinner Regular Diet [DIET] 03/18/18 Lunch Regular Diet [DIET] 03/19/18 05:00 HEMOGLOBIN/HEMATOCRIT,HH [HEME] Timed
[2018-03-18] MEDS ORDERED: busPIRone 5 MG Tab PO PRN (15:29)
[2018-03-18] MEDS: Acetaminophen 500 MG Tab PO PRN ×2 (16:30→22:00)
[2018-03-18] MEDS ORDERED: cloNIDine 0.1 MG Tab PO SCH (21:00)
[2018-03-18] MEDS ORDERED: Prenatal Multivitamin and Multimineral with Iron Tab PO SCH (21:00)
[2018-03-19] MEDS: Ibuprofen 800 MG Tab PO PRN ×2 (01:34→07:34)
[2018-03-19] MEDS: Acetaminophen 500 MG Tab PO PRN (03:01)
--- NOTE | 2018-03-19 07:38 | PCM.PNPP ---
- General Info Date of Service: 03/19/18 Functional Status: Reports: Pain Controlled, Tolerating Diet, Ambulating, Urinating - Review of Systems General: Denies: Fever, Chills HEENT: Denies: Headaches Pulmonary: Denies: Shortness of Breath, Pleuritic Chest Pain Cardiovascular: Denies: Chest Pain, Palpitations Gastrointestinal: Denies: Abdominal Pain Genitourinary: Denies: Dysuria, Incontinence Psychiatric: Denies: Depression, Mood Lability, Anxiety - General Info Date of Service: 03/19/18 - Patient Data Vital Signs - Most Recent: Last Vital Signs Temp 36.2 C 03/19/18 03:00 Pulse 80 03/19/18 03:00 Resp 16 03/19/18 03:00 BP 122/76 03/19/18 03:00 Pulse Ox 97 03/19/18 03:00 Weight - Most Recent: 458 lb 8.984 oz Lab Results - Last 24 Hours: Laboratory Results - last 24 hr 03/18/18 03/18/18 03/18/18 Range/Units 08:25 08:25 12:14 WBC 17.32 H (4.0-11.0) K/uL RBC 3.85 L (4.30-5.90) M/uL Hgb 11.4 L (12.0-16.0) g/dL Hct 35.0 L (36.0-46.0) % MCV 90.9 (80.0-98.0) fL MCH 29.6 (27.0-32.0) pg MCHC 32.6 (31.0-37.0) g/dL RDW Std Deviation 44.1 (28.0-62.0) fl RDW Coeff of Charlie 14 (11.0-15.0) % Plt Count 161 (150-400) K/uL MPV 10.00 (7.40-12.00) fL Nucleated RBC % 0.0 /100WBC Nucleated RBCs # 0 K/uL Cord ABG pH 7.341 (7.18-7.38) Cord ABG Base Excess -1 H (-10--2) Cord VBG pH 7.452 H (7.25-7.45) Cord VBG Base Excess -2 (-10--2) Blood Type O POSITIVE Antibody Screen NEGATIVE 03/19/18 Range/Units 04:40 WBC (4.0-11.0) K/uL RBC (4.30-5.90) M/uL Hgb 10.6 L (12.0-16.0) g/dL Hct 32.5 L (36.0-46.0) % MCV (80.0-98.0) fL MCH (27.0-32.0) pg MCHC (31.0-37.0) g/dL RDW Std Deviation (28.0-62.0) fl RDW Coeff of Charlie (11.0-15.0) % Plt Count (150-400) K/uL MPV (7.40-12.00) fL Nucleated RBC % /100WBC Nucleated RBCs # K/uL Cord ABG pH (7.18-7.38) Cord ABG Base Excess (-10--2) Cord VBG pH (7.25-7.45) Cord VBG Base Excess (-10--2) Blood Type Antibody Screen Med Orders - Current: Current Medications Acetaminophen (Tylenol Extra Strength) 500 mg PO Q4H PRN PRN Reason: Pain Last Admin: 03/19/18 03:01 Dose: 500 mg Acetaminophen (Tylenol Extra Strength) 1,000 mg PO Q4H PRN PRN Reason: Pain Benzocaine/Menthol (Dermoplast Pain Relief 20%-0.5% [place]) 78 gm TOP ASDIRECTED PRN PRN Reason: Perineal Comfort Measure Last Admin: 03/18/18 13:00 Dose: 1 canister Bisacodyl (Dulcolax) 10 mg RECTAL .ONCE PRN PRN Reason: Constipation Buspirone HCl (Buspar) 10 mg PO BID PRN PRN Reason: Anxiety Clonidine HCl (Catapres) 0.1 mg PO BEDTIME [facility] Last Admin: 03/18/18 20:54 Dose: 0.1 mg Docusate Sodium (Colace) 100 mg PO BID PRN PRN Reason: Constipation Last Admin: 03/18/18 13:01 Dose: 100 mg Emollient Ointment (Lansinoh Hpa) 0 gm TOP ASDIRECTED PRN PRN Reason: Sore Nipples Escitalopram Oxalate (Lexapro) 10 mg PO DAILY [facility] Ibuprofen (Motrin) 400 mg PO Q4H PRN PRN Reason: Pain Ibuprofen (Motrin) 800 mg PO Q6H PRN PRN Reason: Pain Last Admin: 03/19/18 01:34 Dose: 800 mg Oxycodone HCl (Oxycodone) 5 mg PO Q2H PRN PRN Reason: Pain Last Admin: 03/18/18 19:05 Dose: 5 mg Prenat Multivit/[place]/Iron/Folic Ac ( Mtr) 1 each PO BEDTIME [facility] Last Admin: 03/18/18 20:38 Dose: 1 each Witch Manisha (Tucks) 1 pad TOP ASDIRECTED PRN PRN Reason: comfort care Last Admin: 03/18/18 13:00 Dose: 1 tub Discontinued Medications Butorphanol Tartrate (Stadol) 1 mg IVPUSH Q1H PRN PRN Reason: Pain Carboprost Tromethamine (Hemabate Ds) 250 mcg IM ASDIRECTED PRN PRN Reason: Post Hemorrhage Lactated Ringer's (Ringers, Lactated) 1,000 mls @ 150 mls/hr IV ASDIRECTED [facility] Last Admin: 03/18/18 10:03 Dose: 150 mls/hr Oxytocin/Sodium Chloride (Oxytocin 30 Unit/500 Ml-Ns) 30 unit in 500 mls @ 250 mls/hr IV TITRATE [facility] Last Admin: 03/18/18 12:16 Dose: 250 mls/hr Tranexamic Acid 1,000 mg/ (Sodium Chloride) 110 mls @ 660 mls/hr IV ONETIME PRN PRN Reason: Bleeding Fentanyl/Bupivacaine HCl (Idcpfswc-Vbise-Om 2 Mcg/Ml-0.125%) Confirm Administered Dose 100 mls @ as directed EP .STK-MED ONE Stop: 03/18/18 09:17 Last Admin: 03/18/18 17:04 Dose: Not Given Lidocaine HCl (Xylocaine 1%) 50 ml INJECT .ONCE PRN PRN Reason: Laceration repair Methylergonovine Maleate (Methergine) 0.2 mg IM ASDIRECTED PRN PRN Reason: Post Hemorrhage Misoprostol (Cytotec) 200 mcg PO .ONCE PRN PRN Reason: Post Hemorrhage Nalbuphine HCl (Nubain) 10 mg IVPUSH Q1H PRN PRN Reason: Pain (severe 7-10) Sodium Chloride (Saline Flush) 10 ml FLUSH ASDIRECTED PRN PRN Reason: Keep Vein Open Sodium Chloride (Saline Flush) 2.5 ml FLUSH ASDIRECTED PRN PRN Reason: Keep Vein Open Sterile Water (Sterile Water For Irrigation) 1,000 ml IRR ASDIRECTED PRN PRN Reason: delivery Last Admin: 03/18/18 12:10 Dose: 1,000 ml - Infant Interaction Infant Disposition, : in Room with Family Infant Interaction: Holding Infant Infant Feeding: Breastfed Infant; Nursed Well - Recovery Exam Fundal Tone: Firm Fundal Level: 1 Fingerbreadths Below Umbilicus Fundal Placement: Midline Lochia Amount: Scant Lochia Color: Rubra/Red Bladder Status: Voiding Urinary Elimination: Voided - Exam General: Alert, Oriented Lungs: Clear to Auscultation, Normal Respiratory Effort GI/Abdominal Exam: Normal Bowel Sounds, Non-Tender Extremities: Non-Tender, Pedal Edema Skin: Warm Psy/Mental Status: Alert, Normal Affect, Normal Mood - Problem List & Annotations (1) Vaginal delivery SNOMED Code(s): 915063302 Code(s): O80 - ENCOUNTER FOR FULL-TERM UNCOMPLICATED DELIVERY Status: Acute Current Visit: Yes - Problem List Review Problem List Initiated/Reviewed/Updated: Yes - My Orders Last 24 Hours: My Active Orders 03/18/18 08:10 Heart Tones [RC] CONTINUOUS Non Stress Test [RC] PER UNIT ROUTINE May Shower [RC] ASDIRECTED Notify Provider [RC] PRN Up ad Vy [RC] ASDIRECTED Vaginal Exam [RC] PRN Vital Signs [RC] PER UNIT ROUTINE 03/18/18 12:38 Patient Status [ADT] Routine May Shower [RC] ASDIRECTED Up ad Vy [RC] ASDIRECTED Vital Signs [RC] PER UNIT ROUTINE Acetaminophen [Tylenol Extra Strength] 1,000 mg PO Q4H PRN Acetaminophen [Tylenol Extra Strength] 500 mg PO Q4H PRN Benzocaine/Menthol [Dermoplast Pain Relief 20%-0.5% [place]] 78 gm TOP ASDIRECTED PRN Bisacodyl [Dulcolax] 10 mg RECTAL .ONCE PRN Docusate Sodium [Colace] 100 mg PO BID PRN Ibuprofen [Motrin] 400 mg PO Q4H PRN Ibuprofen [Motrin] 800 mg PO Q6H PRN Lanolin [Lansinoh HPA] See Dose Instructions TOP ASDIRECTED PRN Witjosh Manisha [Tucks] 1 pad TOP ASDIRECTED PRN oxyCODONE 5 mg PO Q2H PRN Assess Lochia [WOMSER] Per Unit Routine Assess Uterine Involution [WOMSER] Per Unit Routine Breast Pump [WOMSER] Per Unit Routine Perineal Care [OM.PC] Per Unit Routine Peripheral IV Discontinue [OM.PC] Routine Resuscitation Status Routine 03/18/18 15:29 busPIRone [Buspar] 10 mg PO BID PRN 03/18/18 21:00 Vit/FA/Fe Fumarate/Se [ MTR] 1 each PO BEDTIME cloNIDine [Catapres] 0.1 mg PO BEDTIME 03/18/18 Dinner Regular Diet [DIET] 03/18/18 Lunch Regular Diet [DIET] 03/19/18 09:00 Escitalopram [Lexapro] 10 mg PO DAILY - Assessment Assessment:: PPD#1 ss/p , stable and afebrile Clinically stable for discharge today - Plan Plan:: Discharge instructions reviewed Nothing in the vagina for 6 weeks Bleeding and infection precautions reviewed Continue PNV May use OTC pain meds as needed Should continue her antidepressants and notify her psychiatrist that she has delivered. Worsening symptoms of depression and anxiety were reviewed and she should let me or her psychiatrist if these symptoms occur Follow up in 2 and 6 weeks or earlier if indicated at [facility]
--- NOTE | 2018-03-19 07:52 | PCM48HPAN ---
Post Anesthesia Note - EVALUATION WITHIN 48HRS OF ANESTHETIC Vital Signs in Normal Range: Yes Patient Participated in Evaluation: Yes Respiratory Function Stable: Yes Airway Patent: Yes Cardiovascular Function Stable: Yes Hydration Status Stable: Yes Pain Control Satisfactory: Yes Nausea and Vomiting Control Satisfactory: Yes Mental Status Recovered: Yes Resp Rate: 16 Blood Pressure: 126/64 - COMMENTS/OBSERVATIONS Free Text/Narrative:: Denies any complaints or problems
[2018-03-19 08:50] VITALS: BP 125/69
[2018-03-19] MEDS ORDERED: Escitalopram 10 MG Tab PO SCH (09:00)
[2018-03-19] MEDS: oxyCODONE 5 MG Tab PO PRN (10:00)
== END 2018-03-19 14:40 | disposition home or self-care (01) | DRG 560 ==
LOC: MW.OBCHECK 06:52 → MW.OB 06:59 → MW.OBCHECK 08:10 → MW.OB 08:10 → OBSVTOIN 12:14 → MW.OB 14:00
PROVIDERS: ADMIT Obstetrics & Gynecology; ATTEND Obstetrics & Gynecology
PROC: 10E0XZZ Delivery of Products of Conception, External Approach (ICD-10-PCS; principal; 2018-03-18)
PROC: 6A550ZT Pheresis of Cord Blood Stem Cells, Single (ICD-10-PCS; 2018-03-18)
PROC: 0HQ9XZZ Repair Perineum Skin, External Approach (ICD-10-PCS; 2018-03-18)
PROC: 00HU33Z Insertion of Infusion Device into Spinal Canal, Percutaneous Approach (ICD-10-PCS; 2018-03-18)
PROC: 3E0R3BZ Introduction of Anesthetic Agent into Spinal Canal, Percutaneous Approach (ICD-10-PCS; 2018-03-18)
DX: O99.344 Other mental disorders complicating childbirth (principal); E66.9 Obesity, unspecified; F41.9 Anxiety disorder, unspecified; F32.9 Major depressive disorder, single episode, unspecified; O69.81X0 Labor and delivery complicated by cord around neck, without compression, not applicable or unspecified; O70.0 First degree perineal laceration during delivery; O99.214 Obesity complicating childbirth; Z3A.39 39 weeks gestation of pregnancy; Z37.0 Single live birth; F90.9 Attention-deficit hyperactivity disorder, unspecified type
CPT/HCPCS: 36415; 51702; 59025; 59409; 82803; 85014; 85018; 85027; 86850; 86900; 86901; A9270-GY; J2590; J7120

== ENCOUNTER 2018-11-07 07:55 | Emergency (ER) | payer BC ==
[2018-11-07] MEDS ORDERED: Sodium Chloride 0.9% 1,000 ML IV ONE (08:00)
[2018-11-07] MEDS ORDERED: Aspirin 81 MG Tab.Chew PO ONE (08:00)
--- NOTE | 2018-11-07 08:01 | EDM.PDOC ---
ED HPI GENERAL MEDICAL PROBLEM - General Stated Complaint: CHEST PAIN Time Seen by Provider: 11/07/18 08:01 Source of Information: Reports: Patient - History of Present Illness INITIAL COMMENTS - FREE TEXT/NARRATIVE: HISTORY AND PHYSICAL: History of present illness: [Patient presents with an initial complaint of chest pain radiating to the back since the right-sided chest pain no fever nausea vomiting chills sweats no shortness of breath or diaphoresis no radiation arm neck or jaw no headache dizziness or palpitation no bowel or urine symptoms ] Review of systems: As per history of present illness and below otherwise all systems reviewed and negative. Past medical history: As per history of present illness and as reviewed below otherwise noncontributory. Surgical history: As per history of present illness and as reviewed below otherwise noncontributory. Social history: No reported history of drug or alcohol abuse. Family history: As per history of present illness and as reviewed below otherwise noncontributory. Physical exam: HEENT: Atraumatic, normocephalic, pupils reactive, negative for conjunctival pallor or scleral icterus, mucous membranes moist, throat clear, neck supple, nontender, trachea midline. Lungs: Clear to auscultation, breath sounds equal bilaterally, chest nontender. Heart: S1S2, regular, negative for clicks, rubs, or JVD. Abdomen: Soft, nondistended, nontender. Negative for masses or hepatosplenomegaly. Negative for costovertebral tenderness. Pelvis: Stable nontender. Genitourinary: Deferred. Rectal: Deferred. Extremities: Atraumatic, negative for cords or calf pain. Neurovascular unremarkable. Neuro: Awake, alert, oriented. Cranial nerves II through XII unremarkable. Cerebellum unremarkable. Motor and sensory unremarkable throughout. Exam nonfocal. Diagnostics: [CBC CMP UA troponin lipase D- dimer Chest 1 view Ultrasound abdomen limited CTA chest ] Therapeutics: Normal saline Aspirin] 324 mg chewable Impression: Biliary colic Elevated d-dimer CTA negative Definitive disposition and diagnosis as appropriate pending reevaluation and review of above. Left Chest Pain Score (Numeric/FACES): 9 - Related Data Allergies Allergy/AdvReac Type Severity Reaction Status Date / Time adapalene Allergy Cannot Verified 11/07/18 08:08 Remember sulfamethoxazole Allergy Swelling Verified 11/07/18 08:08 [From Bactrim] trimethoprim [From Bactrim] Allergy Swelling Verified 11/07/18 08:08 Home Meds: Home Meds Escitalopram [Lexapro] 10 mg PO DAILY 03/18/18 [History] cloNIDine [Catapres] 0.2 mg PO BEDTIME 03/18/18 [History] Past Medical History HEENT History: Reports: None Cardiovascular History: Reports: None Respiratory History: Reports: None Gastrointestinal History: Reports: GERD Genitourinary History: Reports: None [employer] History: Reports: Musculoskeletal History: Reports: None Neurological History: Reports: None Psychiatric History: Reports: Anxiety, Depression, Panic Attack, Suicidal Ideation Endocrine/Metabolic History: Reports: Obesity/BMI 30+ Hematologic History: Reports: None Immunologic History: Reports: None Oncologic (Cancer) History: Reports: None Dermatologic History: Reports: None - Infectious Disease History Infectious Disease History: Reports: None - Past Surgical History HEENT Surgical History: Reports: Oral Surgery GI Surgical History: Reports: Appendectomy Social & Family History - Family History Family Medical History: Noncontributory OBGYN: Reports: Neurological: Reports: Alzheimers Disease - Caffeine Use Caffeine Use: Reports: None ED ROS GENERAL - Review of Systems Review Of Systems: See Below ED EXAM, GENERAL - Physical Exam Exam: See Below Course - Vital Signs Last Recorded V/S: Last Vital Signs Temp 97.9 F 11/07/18 08:05 Pulse 55 L 11/07/18 09:04 Resp 18 11/07/18 09:04 BP 112/68 11/07/18 09:04 Pulse Ox 99 11/07/18 09:04 - Orders/Labs/Meds Orders: Active Orders 24 hr Category Date Time Status EKG Documentation Completion [RC] STAT Care 11/07/18 08:04 Active Labs: Laboratory Tests 11/07/18 11/07/18 11/07/18 Range/Units 08:15 08:15 08:15 WBC 5.55 (4.0-11.0) K/uL RBC 4.33 (4.30-5.90) M/uL Hgb 12.9 (12.0-16.0) g/dL Hct 38.5 (36.0-46.0) % MCV 88.9 (80.0-98.0) fL MCH 29.8 (27.0-32.0) pg MCHC 33.5 (31.0-37.0) g/dL RDW Std Deviation 41.4 (28.0-62.0) fl RDW Coeff of Charlie 13 (11.0-15.0) % Plt Count 209 (150-400) K/uL MPV 9.50 (7.40-12.00) fL Neut % (Auto) 46.0 L (48.0-80.0) % Lymph % (Auto) 39.6 (16.0-40.0) % [place] % (Auto) 9.9 (0.0-15.0) % Eos % (Auto) 3.8 (0.0-7.0) % Baso % (Auto) 0.7 (0.0-1.5) % Neut # (Auto) 2.6 (1.4-5.7) K/uL Lymph # (Auto) 2.2 (0.6-2.4) K/uL [place] # (Auto) 0.6 (0.0-0.8) K/uL Eos # (Auto) 0.2 (0.0-0.7) K/uL Baso # (Auto) 0.0 (0.0-0.1) K/uL Nucleated RBC % 0.0 /100WBC Nucleated RBCs # 0 K/uL D-Dimer, Quantitative 2.33 H (0.0-0.50) mg/L FEU Sodium 140 (136-145) mmol/L Potassium 3.9 (3.5-5.1) mmol/L Chloride 106 (98-107) mmol/L Carbon Dioxide 25.0 (21.0-32.0) mmol/L BUN 11 (7.0-18.0) mg/dL Creatinine 1.0 (0.6-1.0) mg/dL Est Cr Clr Drug Dosing TNP Estimated GFR (MDRD) > 60.0 ml/min Glucose 99 (74-106) mg/dL Calcium 8.9 (8.5-10.1) mg/dL Total Bilirubin 0.4 (0.2-1.0) mg/dL AST 16 (15-37) IU/L ALT 19 (14-63) IU/L Alkaline Phosphatase 72 (46-116) U/L Troponin I < 0.050 (0.000-0.056) ng/mL Total Protein 7.2 (6.4-8.2) g/dL Albumin 3.7 (3.4-5.0) g/dL Globulin 3.5 (2.6-4.0) g/dL Albumin/Globulin Ratio 1.1 (0.9-1.6) Lipase 119 (73-393) U/L Urine Color Urine Appearance Urine pH (5.0-8.0) Ur Specific [place] (1.001-1.035) Urine Protein (NEGATIVE) mg/dL Urine Glucose (UA) (NEGATIVE) mg/dL Urine Ketones (NEGATIVE) mg/dL Urine Occult Blood (NEGATIVE) Urine Nitrite (NEGATIVE) Urine Bilirubin (NEGATIVE) Urine Urobilinogen (<2.0) EU/dL Ur Leukocyte Esterase (NEGATIVE) Urine RBC (0-2/HPF) Urine WBC (0-5/HPF) Ur Epithelial Cells (NONE-FEW) Urine Bacteria (NEGATIVE) Urine HCG, Qual (NEGATIVE) 11/07/18 11/07/18 Range/Units 10:30 10:30 WBC (4.0-11.0) K/uL RBC (4.30-5.90) M/uL Hgb (12.0-16.0) g/dL Hct (36.0-46.0) % MCV (80.0-98.0) fL MCH (27.0-32.0) pg MCHC (31.0-37.0) g/dL RDW Std Deviation (28.0-62.0) fl RDW Coeff of Charlie (11.0-15.0) % Plt Count (150-400) K/uL MPV (7.40-12.00) fL Neut % (Auto) (48.0-80.0) % Lymph % (Auto) (16.0-40.0) % [place] % (Auto) (0.0-15.0) % Eos % (Auto) (0.0-7.0) % Baso % (Auto) (0.0-1.5) % Neut # (Auto) (1.4-5.7) K/uL Lymph # (Auto) (0.6-2.4) K/uL [place] # (Auto) (0.0-0.8) K/uL Eos # (Auto) (0.0-0.7) K/uL Baso # (Auto) (0.0-0.1) K/uL Nucleated RBC % /100WBC Nucleated RBCs # K/uL D-Dimer, Quantitative (0.0-0.50) mg/L FEU Sodium (136-145) mmol/L Potassium (3.5-5.1) mmol/L Chloride (98-107) mmol/L Carbon Dioxide (21.0-32.0) mmol/L BUN (7.0-18.0) mg/dL Creatinine (0.6-1.0) mg/dL Est Cr Clr Drug Dosing Estimated GFR (MDRD) ml/min Glucose (74-106) mg/dL Calcium (8.5-10.1) mg/dL Total Bilirubin (0.2-1.0) mg/dL AST (15-37) IU/L ALT (14-63) IU/L Alkaline Phosphatase (46-116) U/L Troponin I (0.000-0.056) ng/mL Total Protein (6.4-8.2) g/dL Albumin (3.4-5.0) g/dL Globulin (2.6-4.0) g/dL Albumin/Globulin Ratio (0.9-1.6) Lipase (73-393) U/L Urine Color YELLOW Urine Appearance CLEAR Urine pH 6.0 (5.0-8.0) Ur Specific [place] 1.025 (1.001-1.035) Urine Protein TRACE H (NEGATIVE) mg/dL Urine Glucose (UA) NEGATIVE (NEGATIVE) mg/dL Urine Ketones NEGATIVE (NEGATIVE) mg/dL Urine Occult Blood NEGATIVE (NEGATIVE) Urine Nitrite NEGATIVE (NEGATIVE) Urine Bilirubin SMALL H (NEGATIVE) Urine Urobilinogen 0.2 (<2.0) EU/dL Ur Leukocyte Esterase NEGATIVE (NEGATIVE) Urine RBC 0-2 (0-2/HPF) Urine WBC 2-4 (0-5/HPF) Ur Epithelial Cells FEW (NONE-FEW) Urine Bacteria FEW (NEGATIVE) Urine HCG, Qual NEGATIVE (NEGATIVE) Meds: Medications Discontinued Medications Generic Name Dose Route Start Last Admin Trade Name Freq PRN Reason Stop Dose Admin Aspirin 324 mg 11/07/18 08:00 11/07/18 08:11 Aspirin PO 11/07/18 08:01 324 mg ONETIME ONE Administration Sodium Chloride 1,000 mls @ 999 mls/hr 11/07/18 08:00 11/07/18 08:12 Normal Saline IV 11/07/18 09:00 999 mls/hr STAT ONE Administration Ketorolac Tromethamine 30 mg 11/07/18 08:23 11/07/18 09:03 Toradol IVPUSH 11/07/18 08:24 30 mg ONETIME ONE Administration Departure - Departure Time of Disposition: 11:32 Disposition: Home, Self-Care 01 Condition: Good Clinical Impression: Biliary colic - Discharge Information Referrals: PCP,Unknown [Primary Care Provider] - Additional Instructions: [place]pp[place] diet as discussed Medications as prescribed Return if symptoms persist or worsen Follow-up with general surgery, call phone number below to schedule appropriate follow-up [facility] - General Surgery [address], [address] [place] [address] The following information is given to patients seen in the emergency department who are being discharged to home. This information is to outline your options for follow-up care. We provide all patients seen in our emergency department with a follow-up referral. The need for follow-up, as well as the timing and circumstances, are variable depending upon the specifics of your emergency department visit. If you don't have a primary care physician on staff, we will provide you with a referral. We always advise you to contact your personal physician following an emergency department visit to inform them of the circumstance of the visit and for follow-up with them and/or the need for any referrals to a consulting specialist. The emergency department will also refer you to a specialist when appropriate. This referral assures that you have the opportunity for follow-up care with a specialist. All of these measure are taken in an effort to provide you with optimal care, which includes your follow-up. Under all circumstances we always encourage you to contact your private physician who remains a resource for coordinating your care. When calling for follow-up care, please make the office aware that this follow-up is from your recent emergency room visit. If for any reason you are refused follow-up, please contact the [facility] emergency department at and asked to speak to the emergency department charge nurse. - My Orders Last 24 Hours: My Active Orders 11/07/18 08:04 EKG Documentation Completion [RC] STAT - Assessment/Plan Last 24 Hours: My Active Orders 11/07/18 08:04 EKG Documentation Completion [RC] STAT
[2018-11-07] MEDS ORDERED: Ketorolac 30 MG/ML SDV IVPUSH ONE (08:23)
--- NOTE | 2018-11-07 08:42 | CR ---
EXAMINATION: Portable chest radiograph. HISTORY: Shortness of breath. FINDINGS: The trachea is midline. The cardiomediastinal silhouette is within normal limits. No pulmonary infiltrates, effusions or pneumothorax. Osseous structures appear unremarkable. IMPRESSION: No acute cardiopulmonary process.
[2018-11-07 08:50] LABS: CHLORIDE,CL 106 mmol/L (98-107); SODIUM,NA 140 mmol/L (136-145)
--- NOTE | 2018-11-07 09:10 | US ---
EXAMINATION: Right upper quadrant ultrasound HISTORY: Pain COMPARISON: 12/04/2017 TECHNIQUE: Grayscale and color Doppler imaging obtained of the right upper quadrant. FINDINGS: The visualized pancreas appears normal. The liver is normal contour and echotexture without a focal hepatic mass. Gallbladder wall thickness is normal. There are several gallstones noted, one of which is in mobile within the neck of the gallbladder. No pericholecystic fluid. Common bile duct measures 3 mm. The right kidney measures 11.4 cm [id number] without evidence of hydronephrosis. Negative sonographic Castillo sign. IMPRESSION: 1. Cholelithiasis without secondary signs of cholecystitis.
--- NOTE | 2018-11-07 11:05 | CT ---
EXAMINATION: CTA chest HISTORY: Elevated d-dimer COMPARISON: None TECHNIQUE: Axial CT imaging obtained through the chest without contrast. Coronal and sagittal reconstructions obtained. FINDINGS: The lungs are clear without focal consolidation. No pleural effusion or pneumothorax. The heart is normal in size without a pericardial effusion. Thoracic aorta is normal in caliber. The main and central pulmonary arteries are patent. A few calcified granulomas are noted. No mediastinal, hilar, or axillary lymphadenopathy. Central airways are clear. Cholelithiasis without evidence of cholecystitis. No suspicious osseous abnormalities identified. IMPRESSION: 1. No acute cardiopulmonary findings.
[2018-11-07 11:38] VITALS: BP 112/59
[2018-11-07] MEDS ORDERED: Iopamidol 755 MG/ML 500 ML Multipack Bottle IVPUSH STA (11:57)
== END 2018-11-07 11:51 | disposition home or self-care (01) ==
LOC: MW.ED 07:55
DX: K80.70 Calculus of gallbladder and bile duct without cholecystitis without obstruction (principal); R79.89 Other specified abnormal findings of blood chemistry; F41.9 Anxiety disorder, unspecified; F32.9 Major depressive disorder, single episode, unspecified; Z88.2 Allergy status to sulfonamides; Z88.1 Allergy status to other antibiotic agents; Z88.8 Allergy status to other drugs, medicaments and biological substances; Z79.899 Other long term (current) drug therapy
CPT/HCPCS: 71045; 71275; 76705; 80053; 81001; 81025; 83690; 84484; 85025; 85379; 96361; 96374; 99285; A9270; J1885; J7040; Q9967; 99284

== ENCOUNTER 2019-01-21 06:12 | Emergency (ER) | payer BC ==
--- NOTE | 2019-01-21 06:25 | EDM.PDOC ---
<Sarah Cruz - Last Filed: 01/21/19 06:55> ED HPI GENERAL MEDICAL PROBLEM - General Stated Complaint: BLADDER PAIN- UNABLE TO URINATE Time Seen by Provider: 01/21/19 06:20 - History of Present Illness INITIAL COMMENTS - FREE TEXT/NARRATIVE: HISTORY AND PHYSICAL: History of present illness: The patient is a 28-year-old female who has had several days of pressure urgency and frequency of urination with small volumes each urination and feeling like she is not completely voiding over the last few days and then she was also having bilateral flank pain earlier last week but that has since improved.. She's had no fevers chills upper abdominal pain nausea vomiting or diarrhea. The patient says that she came into the ED because symptoms are worsening and she is feeling the urge to urinate all the time but when she goes only a small amount comes out and she does not feel like she is completely voiding and this is causing her great discomfort. She has never had a kidney or bladder infection. She denies . She has no other systemic complaints. She denies any history of ovarian cysts. The patient does have a history of gallstone says that she is not having pain right upper quadrant currently. She denies any midline back pain or radiation into her legs and no bowel disturbances. Review of systems: As per history of present illness and below otherwise all systems reviewed and negative. Past medical history: As per history of present illness and as reviewed below otherwise noncontributory. Surgical history: As per history of present illness and as reviewed below otherwise noncontributory. Social history: No reported history of drug or alcohol abuse. Family history: As per history of present illness and as reviewed below otherwise noncontributory. Physical exam: General: Well-developed well-nourished female who is nontoxic and vital signs are noted by me HEENT: Atraumatic, normocephalic, , negative for conjunctival pallor or scleral icterus, mucous membranes moist, throat clear, neck supple, nontender, trachea midline. Lungs: Clear to auscultation, breath sounds equal bilaterally, chest nontender. Heart: S1S2, regular rate and rhythm no overt murmurs Abdomen: Soft, nondistended, some mild suprapubic tenderness without rebound or guarding. Negative for masses or hepatosplenomegaly. Negative for costovertebral tenderness. Pelvis: Stable nontender. Genitourinary: Deferred. Rectal: Deferred. Extremities: Atraumatic, negative for cords or calf pain. Neurovascular unremarkable. Neuro: Awake, alert, oriented. Cranial nerves II through XII unremarkable. Cerebellum unremarkable. Motor and sensory unremarkable throughout. Exam nonfocal. On the lumbar spine and no discrete CVA tenderness on palpation. Diagnostics: UA with reflex culture, UCG CBC, CMP, CT scan of the abdomen and pelvis Therapeutics: IV placement IV fluids Toradol Pyridium 0651; Patient is aware that urine test is completely negative for infection and I have offered her further labs and imaging to determine the cause of her pain. She initially declined further workup and testing and now she is currently on the telephone with her and he is concerned and now she would like to do further testing. I have ordered labs and a CAT scan and will endorse this case to Dr. Peña follow-up test results and disposition the patient pending those results. Impression: Dysuria/urgency Definitive disposition and diagnosis as appropriate pending reevaluation and review of above. BLADDER Pain Score (Numeric/FACES): 8 - Related Data Allergies Allergy/AdvReac Type Severity Reaction Status Date / Time adapalene Allergy Cannot Verified 11/07/18 08:08 Remember sulfamethoxazole Allergy Swelling Verified 11/07/18 08:08 [From Bactrim] trimethoprim [From Bactrim] Allergy Swelling Verified 11/07/18 08:08 Home Meds: Home Meds Escitalopram [Lexapro] 10 mg PO DAILY 03/18/18 [History] cloNIDine [Catapres] 0.2 mg PO BEDTIME 03/18/18 [History] Past Medical History HEENT History: Reports: None Cardiovascular History: Reports: None Respiratory History: Reports: None Gastrointestinal History: Reports: GERD Genitourinary History: Reports: None 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: Musculoskeletal History: Reports: None Neurological History: Reports: None Psychiatric History: Reports: Anxiety, Depression, Panic Attack, Suicidal Ideation Endocrine/Metabolic History: Reports: Obesity/BMI 30+ Hematologic History: Reports: None Immunologic History: Reports: None Oncologic (Cancer) History: Reports: None Dermatologic History: Reports: None - Infectious Disease History Infectious Disease History: Reports: None - Past Surgical History HEENT Surgical History: Reports: Oral Surgery GI Surgical History: Reports: Appendectomy Social & Family History - Family History Family Medical History: Noncontributory OBGYN: Reports: Neurological: Reports: Alzheimers Disease - Caffeine Use Caffeine Use: Reports: None ED ROS GENERAL - Review of Systems Review Of Systems: ROS reveals no pertinent complaints other than HPI. ED EXAM, GENERAL - Physical Exam Exam: See Below (See dictation) Course - Vital Signs Last Recorded V/S: Last Vital Signs Temp 97.8 F 01/21/19 06:20 Pulse 86 01/21/19 06:20 Resp 16 01/21/19 06:20 BP 130/74 01/21/19 06:20 Pulse Ox 94 L 01/21/19 06:20 - Orders/Labs/Meds Orders: Active Orders 24 hr Category Date Time Status Sodium Chloride 0.9% [Saline Flush] Med 01/21/19 06:55 Active 10 ml FLUSH ASDIRECTED PRN Sodium Chloride 0.9% [Saline Flush] Med 01/21/19 06:55 Active 2.5 ml FLUSH ASDIRECTED PRN Saline Lock Insert [OM.PC] Stat Oth 01/21/19 06:53 Ordered Medication Orders Sodium Chloride (Saline Flush) 10 ml FLUSH ASDIRECTED PRN PRN Reason: Keep Vein Open Sodium Chloride (Saline Flush) 2.5 ml FLUSH ASDIRECTED PRN PRN Reason: Keep Vein Open Labs: Laboratory Tests 01/21/19 01/21/19 01/21/19 Range/Units 06:15 06:15 06:55 WBC 8.39 (4.0-11.0) K/uL RBC 4.29 L (4.30-5.90) M/uL Hgb 13.0 (12.0-16.0) g/dL Hct 38.9 (36.0-46.0) % MCV 90.7 (80.0-98.0) fL MCH 30.3 (27.0-32.0) pg MCHC 33.4 (31.0-37.0) g/dL RDW Std Deviation 42.0 (28.0-62.0) fl RDW Coeff of Charlie 13 (11.0-15.0) % Plt Count 232 (150-400) K/uL MPV 8.90 (7.40-12.00) fL Neut % (Auto) 54.3 (48.0-80.0) % Lymph % (Auto) 35.0 (16.0-40.0) % [place] % (Auto) 7.6 (0.0-15.0) % Eos % (Auto) 2.5 (0.0-7.0) % Baso % (Auto) 0.6 (0.0-1.5) % Neut # (Auto) 4.6 (1.4-5.7) K/uL Lymph # (Auto) 2.9 H (0.6-2.4) K/uL [place] # (Auto) 0.6 (0.0-0.8) K/uL Eos # (Auto) 0.2 (0.0-0.7) K/uL Baso # (Auto) 0.1 (0.0-0.1) K/uL Nucleated RBC % 0.0 /100WBC Nucleated RBCs # 0 K/uL Sodium (136-145) mmol/L Potassium (3.5-5.1) mmol/L Chloride (98-107) mmol/L Carbon Dioxide (21.0-32.0) mmol/L BUN (7.0-18.0) mg/dL Creatinine (0.6-1.0) mg/dL Est Cr Clr Drug Dosing mL/min Estimated GFR (MDRD) ml/min Glucose (74-106) mg/dL Calcium (8.5-10.1) mg/dL Total Bilirubin (0.2-1.0) mg/dL AST (15-37) IU/L ALT (14-63) IU/L Alkaline Phosphatase (46-116) U/L Total Protein (6.4-8.2) g/dL Albumin (3.4-5.0) g/dL Globulin (2.6-4.0) g/dL Albumin/Globulin Ratio (0.9-1.6) Urine Color YELLOW Urine Appearance CLEAR Urine pH 6.0 (5.0-8.0) Ur Specific [place] 1.010 (1.001-1.035) Urine Protein NEGATIVE (NEGATIVE) mg/dL Urine Glucose (UA) NEGATIVE (NEGATIVE) mg/dL Urine Ketones NEGATIVE (NEGATIVE) mg/dL Urine Occult Blood NEGATIVE (NEGATIVE) Urine Nitrite NEGATIVE (NEGATIVE) Urine Bilirubin NEGATIVE (NEGATIVE) Urine Urobilinogen 0.2 (<2.0) EU/dL Ur Leukocyte Esterase NEGATIVE (NEGATIVE) Urine HCG, Qual NEGATIVE (NEGATIVE) 01/21/19 Range/Units 06:55 WBC (4.0-11.0) K/uL RBC (4.30-5.90) M/uL Hgb (12.0-16.0) g/dL Hct (36.0-46.0) % MCV (80.0-98.0) fL MCH (27.0-32.0) pg MCHC (31.0-37.0) g/dL RDW Std Deviation (28.0-62.0) fl RDW Coeff of Charlie (11.0-15.0) % Plt Count (150-400) K/uL MPV (7.40-12.00) fL Neut % (Auto) (48.0-80.0) % Lymph % (Auto) (16.0-40.0) % [place] % (Auto) (0.0-15.0) % Eos % (Auto) (0.0-7.0) % Baso % (Auto) (0.0-1.5) % Neut # (Auto) (1.4-5.7) K/uL Lymph # (Auto) (0.6-2.4) K/uL [place] # (Auto) (0.0-0.8) K/uL Eos # (Auto) (0.0-0.7) K/uL Baso # (Auto) (0.0-0.1) K/uL Nucleated RBC % /100WBC Nucleated RBCs # K/uL Sodium 137 (136-145) mmol/L Potassium 3.9 (3.5-5.1) mmol/L Chloride 102 (98-107) mmol/L Carbon Dioxide 26.1 (21.0-32.0) mmol/L BUN 11 (7.0-18.0) mg/dL Creatinine 0.8 (0.6-1.0) mg/dL Est Cr Clr Drug Dosing 96.26 mL/min Estimated GFR (MDRD) > 60.0 ml/min Glucose 84 (74-106) mg/dL Calcium 9.0 (8.5-10.1) mg/dL Total Bilirubin 0.6 (0.2-1.0) mg/dL AST 17 (15-37) IU/L ALT 21 (14-63) IU/L Alkaline Phosphatase 65 (46-116) U/L Total Protein 7.5 (6.4-8.2) g/dL Albumin 4.0 (3.4-5.0) g/dL Globulin 3.5 (2.6-4.0) g/dL Albumin/Globulin Ratio 1.1 (0.9-1.6) Urine Color Urine Appearance Urine pH (5.0-8.0) Ur Specific [place] (1.001-1.035) Urine Protein (NEGATIVE) mg/dL Urine Glucose (UA) (NEGATIVE) mg/dL Urine Ketones (NEGATIVE) mg/dL Urine Occult Blood (NEGATIVE) Urine Nitrite (NEGATIVE) Urine Bilirubin (NEGATIVE) Urine Urobilinogen (<2.0) EU/dL Ur Leukocyte Esterase (NEGATIVE) Urine HCG, Qual (NEGATIVE) Meds: Medications Generic Name Dose Route Start Last Admin Trade Name Freq PRN Reason Stop Dose Admin Sodium Chloride 10 ml 01/21/19 06:55 Saline Flush FLUSH ASDIRECTED PRN Keep Vein Open Sodium Chloride 2.5 ml 01/21/19 06:55 Saline Flush FLUSH ASDIRECTED PRN Keep Vein Open Discontinued Medications Generic Name Dose Route Start Last Admin Trade Name Freq PRN Reason Stop Dose Admin Sodium Chloride 1,000 mls @ 999 mls/hr 01/21/19 06:55 01/21/19 07:29 Normal Saline IV 01/21/19 07:55 999 mls/hr STAT ONE Administration Ketorolac Tromethamine 30 mg 01/21/19 06:55 01/21/19 07:29 Toradol IVPUSH 01/21/19 06:56 30 mg ONETIME ONE Administration Phenazopyridine HCl 200 mg 01/21/19 06:49 01/21/19 07:29 Pyridium PO 01/21/19 06:50 200 mg ONETIME ONE Administration Departure - Departure Time of Disposition: 06:50 Disposition: Home, Self-Care 01 Condition: Good Clinical Impression: Abdominal pain Qualifiers: Abdominal location: unspecified location Qualified Code(s): R10.9 - Unspecified abdominal pain - Discharge Information Instructions: Abdominal Pain, Adult, [id number] Referrals: PCP,None [Primary Care Provider] - Forms: ED Department Discharge Additional Instructions: The following information is given to patients seen in the emergency department who are being discharged to home. This information is to outline your options for follow-up care. We provide all patients seen in our emergency department with a follow-up referral. The need for follow-up, as well as the timing and circumstances, are variable depending upon the specifics of your emergency department visit. If you don't have a primary care physician on staff, we will provide you with a referral. We always advise you to contact your personal physician following an emergency department visit to inform them of the circumstance of the visit and for follow-up with them and/or the need for any referrals to a consulting specialist. The emergency department will also refer you to a specialist when appropriate. This referral assures that you have the opportunity for follow-up care with a specialist. All of these measure are taken in an effort to provide you with optimal care, which includes your follow-up. Under all circumstances we always encourage you to contact your private physician who remains a resource for coordinating your care. When calling for follow-up care, please make the office aware that this follow-up is from your recent emergency room visit. If for any reason you are refused follow-up, please contact the [facility] Emergency Department at and asked to speak to the emergency department charge nurse. [facility] [address] [place] [id number] [facility] [address] [place] [id number] <Nadira Peña - Last Filed: 01/21/19 08:35> ED HPI GENERAL MEDICAL PROBLEM - History of Present Illness INITIAL COMMENTS - FREE TEXT/NARRATIVE: Patient was signed out to me by Dr. Cruz on shift nurse manager to check results of labs and imaging. Patient's tests were essentially normal CT showed cholelithiasis which the patient know about and does not currently have symptoms of cholelithiasis. She has no kidney stones or findings explaining her symptoms. Structure to follow-up with primary care or women's health for further evaluation. Departure - Departure Time of Disposition: 08:25 - Discharge Information *PRESCRIPTION DRUG MONITORING PROGRAM REVIEWED*: No *COPY OF PRESCRIPTION DRUG MONITORING REPORT IN PATIENT SUE: No
[2019-01-21] MEDS ORDERED: Phenazopyridine 200 MG Tab PO ONE (06:49)
[2019-01-21] MEDS ORDERED: Sodium Chloride 0.9% 10 ML Syringe FLUSH PRN (06:55)
[2019-01-21] MEDS ORDERED: Sodium Chloride 0.9% 2.5 ML Syringe FLUSH PRN (06:55)
[2019-01-21] MEDS ORDERED: Ketorolac 30 MG/ML SDV IVPUSH ONE (06:55)
[2019-01-21] MEDS ORDERED: Sodium Chloride 0.9% 1,000 ML IV ONE (06:55)
[2019-01-21 07:31] LABS: CHLORIDE,CL 102 mmol/L (98-107); SODIUM,NA 137 mmol/L (136-145)
--- NOTE | 2019-01-21 08:11 | CT ---
INDICATION: Suprapubic abdomen and bilateral flank pain. Unable to urinate. History of renal stones. TECHNIQUE: CT abdomen and pelvis without contrast. COMPARISON: December 17, 2015. FINDINGS: Lower chest: Unremarkable. Liver: Normal in size and attenuation. No masses. Gallbladder and bile ducts: At least 1 prominent gallbladder stone is present. No sign of inflammation or biliary dilatation. Pancreas: Unremarkable. No mass or inflammation. Spleen: Normal in size. No masses. Adrenal glands: Normal in size. No nodules. Kidneys: Normal in size. No masses, stones, or hydronephrosis. GI tract: Unremarkable. Normal in caliber. No sign of mass or inflammation. Appendix is not visualized. Vasculature: Unremarkable. Lymph nodes: No lymphadenopathy. Abdominal wall/Omentum/Peritoneum: Unremarkable. No sign of mass or infiltration. No free air or significant free fluid. Pelvis: Unremarkable. No pelvic masses. No sign of bladder inflammation. Bones: Bilateral symmetrical changes of sacroiliitis are present. IMPRESSION: 1. Unremarkable kidneys, ureters, and urinary bladder. No sinus stones, hydronephrosis, or inflammation. 2. Cholelithiasis. 3. Bilateral sacroiliitis. 4. No other acute or significant finding. Please note that all CT scans at this facility use dose modulation, iterative reconstruction, and/or weight-based dosing when appropriate to reduce radiation dose to as low as reasonably achievable. Dictated by Lonnie Tejeda MD @ Jan 21 2019 7:51AM Signed by Dr. Lonnie Tejeda @ Jan 21 2019 8:09AM
[2019-01-21 09:42] VITALS: BP 116/70
== END 2019-01-21 08:34 | disposition home or self-care (01) ==
LOC: MW.ED 06:12
DX: R10.30 Lower abdominal pain, unspecified (principal); R30.0 Dysuria; R39.15 Urgency of urination; F41.9 Anxiety disorder, unspecified; E66.9 Obesity, unspecified; F32.9 Major depressive disorder, single episode, unspecified; Z88.2 Allergy status to sulfonamides; Z88.8 Allergy status to other drugs, medicaments and biological substances; Z79.899 Other long term (current) drug therapy; Z90.49 Acquired absence of other specified parts of digestive tract; Z98.890 Other specified postprocedural states
CPT/HCPCS: 36415; 74176; 80053; 81003; 81025; 85025; 96361; 96374; 99284; A9270; J1885; J7040

== ENCOUNTER 2020-07-07 09:34 | Emergency (ER) | payer BC, OTHER ==
--- NOTE | 2020-07-07 10:05 | EDM.PDOC ---
ED HPI GENERAL MEDICAL PROBLEM - General Chief Complaint: Behavioral/Psych Stated Complaint: EMS ARRIVAL Time Seen by Provider: 07/07/20 09:41 Source of Information: Reports: Patient, EMS History Limitations: Reports: No Limitations - History of Present Illness INITIAL COMMENTS - FREE TEXT/NARRATIVE: 29-year-old female with history of depression presents with suicidal overdose. She overdosed on 15 to 20 tablets of 10mg Lexapro last night at 10 PM because she was feeling depressed and suicidal. She denies auditory or visual hallucination or homicidal ideation. Patient denies fever, chills, headache, chest pain, shortness of breath, abdominal pain, focal numbness or weakness. ROS: A 10-point review of systems, other than pertinent positives and negatives as stated per HPI, is otherwise negative Past medical history: No additional pertinent history Past Surgical history: No additional pertinent history Social history: No additional pertinent history Family history: No additional pertinent history PHYSICAL EXAM General: AOx4, GCS = 15, No distress HEENT: dry mucous membrane Neck: supple, no meningismus, no Kernig or Brudzinski Cardiac: S1S2 RRR Respiratory: CTAB, no crackles or rales, no wheezing Abdomen: Soft, nontender, no rebound or guarding, nondistended, no pulsatile mas s. Back: nontender Musculoskeletal: NVI distally, no deformity Neuro: No focal deficits, CN 2 - 12 WNL. Psych: suicidal, no HI,AH,VH - Related Data Allergies Allergy/AdvReac Type Severity Reaction Status Date / Time adapalene Allergy Cannot Verified 07/07/20 09:51 Remember sulfamethoxazole Allergy Swelling Verified 07/07/20 09:51 [From Bactrim] trimethoprim [From Bactrim] Allergy Swelling Verified 07/07/20 09:51 Home Meds: Home Meds Escitalopram [Lexapro] 10 mg PO DAILY 03/18/18 [History] cloNIDine [Catapres] 0.2 mg PO BEDTIME 03/18/18 [History] Past Medical History HEENT History: Reports: None Cardiovascular History: Reports: None Respiratory History: Reports: None Gastrointestinal History: Reports: GERD Genitourinary History: Reports: None CRM 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: Musculoskeletal History: Reports: None Neurological History: Reports: None Psychiatric History: Reports: Anxiety, Depression, Panic Attack, Suicidal Ideation Endocrine/Metabolic History: Reports: Obesity/BMI 30+ Hematologic History: Reports: None Immunologic History: Reports: None Oncologic (Cancer) History: Reports: None Dermatologic History: Reports: None - Infectious Disease History Infectious Disease History: Reports: None - Past Surgical History HEENT Surgical History: Reports: Oral Surgery GI Surgical History: Reports: Appendectomy Social & Family History - Family History Family Medical History: Noncontributory OBGYN: Reports: Neurological: Reports: Alzheimers Disease - Tobacco Use Tobacco Use Status *Q: Unknown Ever Used Tobacco - Caffeine Use Caffeine Use: Reports: None - Recreational Drug Use Recreational Drug Use: No ED ROS GENERAL - Review of Systems Review Of Systems: See Below (see dictation) ED EXAM, GENERAL - Physical Exam Exam: See Below (see dictation) #1 Interpretation EKG Interpretation Comments: Heart rate = 75 bpm, normal sinus rhythm, normal QRS interval, QTc 481, no STEMI. EKG and rhythm strip interpreted by me at 1007 Course - Vital Signs Last Recorded V/S: Last Vital Signs Temp 96.8 F L 07/07/20 09:52 Pulse 74 07/07/20 11:34 Resp 17 07/07/20 11:34 BP 118/73 07/07/20 11:34 Pulse Ox 98 07/07/20 11:34 - Orders/Labs/Meds Orders: Active Orders 24 hr Category Date Time Status EKG Documentation Completion [RC] STAT Care 07/07/20 10:03 Active CORONAVIRUS COVID-19 PCR PHL Stat Lab 07/07/20 10:32 Received Labs: Laboratory Tests 07/07/20 07/07/20 07/07/20 Range/Units 10:19 10:19 10:19 WBC (4.0-11.0) K/uL RBC (4.30-5.90) M/uL Hgb (12.0-16.0) g/dL Hct (36.0-46.0) % MCV (80.0-98.0) fL MCH (27.0-32.0) pg MCHC (31.0-37.0) g/dL RDW Std Deviation (28.0-62.0) fl RDW Coeff of Charlie (11.0-15.0) % Plt Count (150-400) K/uL MPV (7.40-12.00) fL Neut % (Auto) (48.0-80.0) % Lymph % (Auto) (16.0-40.0) % Clarke % (Auto) (0.0-15.0) % Eos % (Auto) (0.0-7.0) % Baso % (Auto) (0.0-1.5) % Neut # (Auto) (1.4-5.7) K/uL Lymph # (Auto) (0.6-2.4) K/uL Clarke # (Auto) (0.0-0.8) K/uL Eos # (Auto) (0.0-0.7) K/uL Baso # (Auto) (0.0-0.1) K/uL Nucleated RBC % /100WBC Nucleated RBCs # K/uL Sodium (136-145) mmol/L Potassium (3.5-5.1) mmol/L Chloride (98-107) mmol/L Carbon Dioxide (21.0-32.0) mmol/L BUN (7.0-18.0) mg/dL Creatinine (0.6-1.0) mg/dL Est Cr Clr Drug Dosing mL/min Estimated GFR (MDRD) ml/min Glucose (74-106) mg/dL Calcium (8.5-10.1) mg/dL Magnesium (1.8-2.4) mg/dL Total Bilirubin (0.2-1.0) mg/dL AST (15-37) IU/L ALT (14-63) IU/L Alkaline Phosphatase (46-116) U/L Total Protein (6.4-8.2) g/dL Albumin (3.4-5.0) g/dL Globulin (2.6-4.0) g/dL Albumin/Globulin Ratio (0.9-1.6) TSH 3rd Generation (0.36-3.74) uIU/mL Urine Color YELLOW Urine Appearance CLEAR Urine pH 6.0 (5.0-8.0) Ur Specific [place] 1.020 (1.001-1.035) Urine Protein NEGATIVE (NEGATIVE) mg/dL Urine Glucose (UA) NEGATIVE (NEGATIVE) mg/dL Urine Ketones NEGATIVE (NEGATIVE) mg/dL Urine Occult Blood NEGATIVE (NEGATIVE) Urine Nitrite NEGATIVE (NEGATIVE) Urine Bilirubin NEGATIVE (NEGATIVE) Urine Urobilinogen 0.2 (<2.0) EU/dL Ur Leukocyte Esterase NEGATIVE (NEGATIVE) Urine RBC 0-1 (0-2/HPF) Urine WBC 0-1 (0-5/HPF) Ur Epithelial Cells FEW (NONE-FEW) Urine Bacteria FEW (NEGATIVE) Urine HCG, Qual NEGATIVE (NEGATIVE) Salicylates (0-20) mg/dL Urine Opiates Screen NEGATIVE (NEGATIVE) Ur Oxycodone Screen NEGATIVE (NEGATIVE) Urine Methadone Screen NEGATIVE (NEGATIVE) Acetaminophen ug/mL Ur Barbiturates Screen NEGATIVE (NEGATIVE) Ur Phencyclidine Scrn NEGATIVE (NEGATIVE) Ur Amphetamine Screen NEGATIVE (NEGATIVE) U Methamphetamines Scrn NEGATIVE (NEGATIVE) U Benzodiazepines Scrn NEGATIVE (NEGATIVE) U Cocaine Metab Screen NEGATIVE (NEGATIVE) U Marijuana (THC) Screen NEGATIVE (NEGATIVE) Ethyl Alcohol mg/dL SARS CoV-2 RNA Rapid TERRA (NEGATIVE) 07/07/20 07/07/20 07/07/20 Range/Units 10:32 11:30 11:30 WBC 10.40 (4.0-11.0) K/uL RBC 4.06 L (4.30-5.90) M/uL Hgb 12.2 (12.0-16.0) g/dL Hct 37.1 (36.0-46.0) % MCV 91.4 (80.0-98.0) fL MCH 30.0 (27.0-32.0) pg MCHC 32.9 (31.0-37.0) g/dL RDW Std Deviation 42.4 (28.0-62.0) fl RDW Coeff of Charlie 13 (11.0-15.0) % Plt Count 268 (150-400) K/uL MPV 9.30 (7.40-12.00) fL Neut % (Auto) 78.9 (48.0-80.0) % Lymph % (Auto) 16.3 (16.0-40.0) % Clarke % (Auto) 3.8 (0.0-15.0) % Eos % (Auto) 0.4 (0.0-7.0) % Baso % (Auto) 0.6 (0.0-1.5) % Neut # (Auto) 8.2 H (1.4-5.7) K/uL Lymph # (Auto) 1.7 (0.6-2.4) K/uL Clarke # (Auto) 0.4 (0.0-0.8) K/uL Eos # (Auto) 0.0 (0.0-0.7) K/uL Baso # (Auto) 0.1 (0.0-0.1) K/uL Nucleated RBC % 0.0 /100WBC Nucleated RBCs # 0 K/uL Sodium 138 (136-145) mmol/L Potassium 4.1 (3.5-5.1) mmol/L Chloride 104 (98-107) mmol/L Carbon Dioxide 25.0 (21.0-32.0) mmol/L BUN 13 (7.0-18.0) mg/dL Creatinine 1.0 (0.6-1.0) mg/dL Est Cr Clr Drug Dosing 82.23 mL/min Estimated GFR (MDRD) > 60.0 ml/min Glucose 99 (74-106) mg/dL Calcium 8.5 (8.5-10.1) mg/dL Magnesium 1.7 L (1.8-2.4) mg/dL Total Bilirubin 0.3 (0.2-1.0) mg/dL AST 27 (15-37) IU/L ALT 45 (14-63) IU/L Alkaline Phosphatase 60 (46-116) U/L Total Protein 7.0 (6.4-8.2) g/dL Albumin 3.6 (3.4-5.0) g/dL Globulin 3.4 (2.6-4.0) g/dL Albumin/Globulin Ratio 1.1 (0.9-1.6) TSH 3rd Generation 0.74 (0.36-3.74) uIU/mL Urine Color Urine Appearance Urine pH (5.0-8.0) Ur Specific [place] (1.001-1.035) Urine Protein (NEGATIVE) mg/dL Urine Glucose (UA) (NEGATIVE) mg/dL Urine Ketones (NEGATIVE) mg/dL Urine Occult Blood (NEGATIVE) Urine Nitrite (NEGATIVE) Urine Bilirubin (NEGATIVE) Urine Urobilinogen (<2.0) EU/dL Ur Leukocyte Esterase (NEGATIVE) Urine RBC (0-2/HPF) Urine WBC (0-5/HPF) Ur Epithelial Cells (NONE-FEW) Urine Bacteria (NEGATIVE) Urine HCG, Qual (NEGATIVE) Salicylates 0.6 (0-20) mg/dL Urine Opiates Screen (NEGATIVE) Ur Oxycodone Screen (NEGATIVE) Urine Methadone Screen (NEGATIVE) Acetaminophen <2.0 ug/mL Ur Barbiturates Screen (NEGATIVE) Ur Phencyclidine Scrn (NEGATIVE) Ur Amphetamine Screen (NEGATIVE) U Methamphetamines Scrn (NEGATIVE) U Benzodiazepines Scrn (NEGATIVE) U Cocaine Metab Screen (NEGATIVE) U Marijuana (THC) Screen (NEGATIVE) Ethyl Alcohol 43 mg/dL SARS CoV-2 RNA Rapid TERRA NEGATIVE (NEGATIVE) - Re-Assessments/Exams Free Text/Narrative Re-Assessment/Exam: 07/07/20 10:06 d/w with poison control, lexapro t1/2 is 5hrs, a 12 hr observation fro the time of overdose, and recommend blood work and EKG, will call back for results 07/07/20 13:02 Patient will require transfer to outside facility for the need of higher level of care not available at this facility, and the need for admissions consultant services unavailable at this facility. Any emergency conditions have been stabilized to the ability of the ED prior to the transfer. Case was discussed with psychiatrist Dr. Bar Mendoza at [facility], he will access patient at [facility]. D/w Dr. Grimes at [facility], will accept transfer. Departure - Departure Time of Disposition: 13:08 Disposition: DC/Tfer to Other 70 Condition: Good Clinical Impression: Depressive disorder, Self-harm, Suicidal ideation, Suicidal overdose - Discharge Information *PRESCRIPTION DRUG MONITORING PROGRAM REVIEWED*: Not Applicable *COPY OF PRESCRIPTION DRUG MONITORING REPORT IN PATIENT SUE: Not Applicable Referrals: PCP,None [Primary Care Provider] - Forms: ED Department Discharge Critical Care Note - Critical Care Note Comments: CRITCAL CARE: The high probability of sudden, clinically significant deterioration in the patient's condition required the highest level of my preparedness to intervene urgently. The services I provided to this patient were to treat and/or prevent clinically significant deterioration. Services included the following: chart data review, reviewing nursing notes and/or old charts, documentation time, admissions consultant collaboration regarding findings and treatment options, medication orders and management, direct patient care, vital sign assessments and ordering, interpreting and reviewing diagnostic studies/lab tests. Aggregate critical care time includes only time during which I was engaged in work directly related to the patient's care, as described above, whether at the bedside or elsewhere in the Emergency Department. It did not include time spent performing other reported procedures or the services of residents, students, nurses or physician assistants. Frequent interventions and/or frequent repeat evaluations were required as well as counseling and coordination of care regarding prognosis, treatments, and discussions with patient, staff and consultants. Critical Care (excluding other procedures): 40 minutes Sepsis Event Note (ED) - Evaluation Sepsis Screening Result: No Definite Risk - Focused Exam Vital Signs: Vital Signs Temp Pulse Resp BP Pulse Ox 07/07/20 11:34 74 17 118/73 98 07/07/20 11:04 79 23 H 106/66 97 07/07/20 10:24 77 19 115/74 98 07/07/20 09:52 96.8 F L 81 17 119/70 98 - My Orders Last 24 Hours: My Active Orders 07/07/20 10:03 EKG Documentation Completion [RC] STAT 07/07/20 10:32 CORONAVIRUS COVID-19 PCR PHL Stat - Assessment/Plan Last 24 Hours: My Active Orders 07/07/20 10:03 EKG Documentation Completion [RC] STAT 07/07/20 10:32 CORONAVIRUS COVID-19 PCR PHL Stat
[2020-07-07 12:12] LABS: ACETAMINOPHEN <2.0 ug/mL
[2020-07-07 12:39] LABS: BLOOD UREA NITROGEN,BUN 13 mg/dL (7.0-18.0); CHLORIDE,CL 104 mmol/L (98-107); GLUCOSE RANDOM 99 mg/dL (74-106); POTASSIUM,K 4.1 mmol/L (3.5-5.1); SODIUM,NA 138 mmol/L (136-145)
[2020-07-07 19:21] VITALS: BP 109/66; PULSE 78
== END 2020-07-07 14:00 | disposition other institution (70) ==
LOC: MW.ED 09:34
DX: T43.222A Poisoning by selective serotonin reuptake inhibitors, intentional self-harm, initial encounter (principal); F32.9 Major depressive disorder, single episode, unspecified; F41.9 Anxiety disorder, unspecified; E66.9 Obesity, unspecified; Z68.30 Body mass index [BMI] 30.0-30.9, adult; Z88.8 Allergy status to other drugs, medicaments and biological substances; Z88.2 Allergy status to sulfonamides; Z88.1 Allergy status to other antibiotic agents; Z79.899 Other long term (current) drug therapy; Z20.828 Contact with and (suspected) exposure to other viral communicable diseases
CPT/HCPCS: 36415; 80053; 80305-QW; 80307; 81001; 81025; 83735; 84443; 85025; 93005; 93010; 99291; U0002

== ENCOUNTER 2020-11-12 06:42 | Day surgery (SDC) | payer BC ==
[~2020-11-12 06:42] MED LIST changes: -Gadobutrol 7.5 mMOL/7.5 ML SDV IVPUSH STA; +Lactated Ringers 1,000 ML IV SCH; +Sodium Chloride 0.9% 10 ML SDV IV PRN; +Sodium Chloride 0.9% 10 ML Syringe FLUSH PRN; +Sodium Chloride 0.9% 2.5 ML Syringe FLUSH PRN
[2020-11-12] MEDS ORDERED: fentaNYL 250 MCG/5 ML SDV ONE (07:02)
[2020-11-12] MEDS ORDERED: Midazolam 1 MG/ML 2 ML SDV ONE (07:02)
[2020-11-12] MEDS ORDERED: Propofol 200 MG/20 ML SDV ONE (07:02)
[2020-11-12] MEDS ORDERED: Ondansetron 4 MG/2 ML SDV ONE (07:04)
[2020-11-12] MEDS ORDERED: Lidocaine 2% 5 ML SDV ONE (07:04)
[2020-11-12] MEDS ORDERED: Dexamethasone 4 MG/ML 5 ML MDV ONE (07:04)
[2020-11-12] MEDS ORDERED: Glycopyrrolate 0.2 MG/ML SDV ONE ×2 (07:04→08:07)
[2020-11-12] MEDS ORDERED: Rocuronium Bromide 50 MG/5 ML Syringe ONE (07:04)
[2020-11-12] MEDS ORDERED: Bupivacaine 0.5% 30 ML SDV ONE (07:36)
--- NOTE | 2020-11-12 07:38 | PCM.PREANE ---
Preanesthetic Assessment - Anesthesia/Transfusion/Family Hx Anesthesia History: Prior Anesthesia Without Reaction Family History of Anesthesia Reaction: No Transfusion History: No Prior Transfusion(s) - Review of Systems General: No Symptoms Pulmonary: No Symptoms Cardiovascular: No Symptoms Gastrointestinal: No Symptoms Neurological: No Symptoms Other: Reports: None - Physical Assessment Vital Signs: Last Vital Signs Temp 97.3 F 11/12/20 06:50 Pulse 44 L 11/12/20 06:50 Resp 16 11/12/20 06:50 BP 111/62 11/12/20 06:50 Pulse Ox 98 11/12/20 06:50 Height: 5 ft 7 in Weight: 99.337 kg ASA Class: 2 Airway Class: Mallampati = 2 Dentition: Reports: Normal Dentition ROM/Head Extension: Full Lungs: Clear to Auscultation, Normal Respiratory Effort Cardiovascular: Regular Rate, Regular Rhythm - Lab Values: Laboratory Last Values WBC 6.44 K/uL (4.0-11.0) 11/12/20 07:12 RBC 4.05 M/uL (4.30-5.90) L 11/12/20 07:12 Hgb 12.2 g/dL (12.0-16.0) 11/12/20 07:12 Hct 37.1 % (36.0-46.0) 11/12/20 07:12 MCV 91.6 fL (80.0-98.0) 11/12/20 07:12 MCH 30.1 pg (27.0-32.0) 11/12/20 07:12 MCHC 32.9 g/dL (31.0-37.0) 11/12/20 07:12 RDW Std Deviation 44.6 fl (28.0-62.0) 11/12/20 07:12 RDW Coeff of Charlie 13 % (11.0-15.0) 11/12/20 07:12 Plt Count 250 K/uL (150-400) 11/12/20 07:12 MPV 9.80 fL (7.40-12.00) 11/12/20 07:12 Nucleated RBC % 0.0 /100WBC 11/12/20 07:12 Nucleated RBCs # 0 K/uL 11/12/20 07:12 - Allergies Allergies/Adverse Reactions: Allergies Allergy/AdvReac Type Severity Reaction Status Date / Time adapalene Allergy skin Verified 11/08/20 10:28 reaction sulfamethoxazole Allergy Swelling Verified 11/08/20 10:28 [From Bactrim] trimethoprim [From Bactrim] Allergy Swelling Verified 11/08/20 10:28 - Blood Blood Available: No - Anesthesia Plan Pre-Op Medication Ordered: None - Acknowledgements Anesthesia Type Planned: General Anesthesia Pt an Appropriate Candidate for the Planned Anesthesia: Yes Alternatives and Risks of Anesthesia Discussed w Pt/Guardian: Yes Pt/Guardian Understands and Agrees with Anesthesia Plan: Yes PreAnesthesia Questionnaire HEENT History: Reports: Other (See Below) Other HEENT History: upper and lower permanent dental retainers Cardiovascular History: Reports: None Respiratory History: Reports: None Gastrointestinal History: Reports: GERD Genitourinary History: Reports: Renal Calculus HOOKER UP History: Reports: , Spontaneous Other OB/BYN History: hx ETOP Musculoskeletal History: Reports: None Neurological History: Reports: Seizure 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 Psychiatric History: Reports: ADHD, Anxiety, Depression, Panic Attack, Suicide Attempt Endocrine/Metabolic History: Reports: Obesity/BMI 30+ Hematologic History: Reports: None Immunologic History: Reports: None Oncologic (Cancer) History: Reports: None Dermatologic History: Reports: None - Infectious Disease History Infectious Disease History: Reports: None - Past Surgical History Head Surgeries/Procedures: Reports: None HEENT Surgical History: Reports: Oral Surgery Other HEENT Surgeries/Procedures: wisdom teeth extraction Cardiovascular Surgical History: Reports: None Respiratory Surgical History: Reports: None GI Surgical History: Reports: Appendectomy Female Surgical History: Reports: None Endocrine Surgical History: Reports: None Neurological Surgical History: Reports: None Musculoskeletal Surgical History: Reports: None Oncologic Surgical History: Reports: None Dermatological Surgical History: Reports: None - SUBSTANCE USE Tobacco Use Within Last Twelve Months: Vaping - HOME MEDS Home Medications: Home Meds Acetaminophen [Tylenol] 2 tab PO ASDIRECTED PRN 09/15/20 [History] Escitalopram Oxalate [Lexapro] 20 mg PO DAILY 09/15/20 [History] Methylphenidate HCl [Ritalin] 20 mg PO BID 09/15/20 [History] Omeprazole 20 mg PO DAILY PRN 09/15/20 [History] cloNIDine HCL [Clonidine HCl] 2 tab PO BEDTIME 09/15/20 [History] norgestimate-ethinyl estradioL [Sprintec 28 Day Tablet] 1 tab PO DAILY 09/15/20 [History] - CURRENT (IN HOUSE) MEDS Current Meds: Current Medications Lactated Ringer's (Ringers, Lactated) 1,000 mls @ 125 mls/hr IV ASDIRECTED MURTAZA Last Admin: 11/12/20 07:23 Dose: 125 mls/hr Documented by: Piperacillin Sod/Tazobactam (Sod 3.375 gm/ Sodium Chloride) 50 mls @ 100 mls/hr IV ONETIME ONE Stop: 11/12/20 08:29 Sodium Chloride (Saline Flush) 2.5 ml FLUSH ASDIRECTED PRN PRN Reason: Keep Vein Open Sodium Chloride (Normal Saline) 10 ml IV ASDIRECTED PRN PRN Reason: IV Use Sodium Chloride (Saline Flush) 10 ml FLUSH ASDIRECTED PRN PRN Reason: Keep Vein Open Discontinued Medications Dexamethasone (Dexamethasone) Confirm Administered Dose 20 mg .ROUTE .STK-MED ONE Stop: 11/12/20 07:05 Fentanyl (Sublimaze) Confirm Administered Dose 250 mcg .ROUTE .STK-MED ONE Stop: 11/12/20 07:03 Glycopyrrolate (Robinul) Confirm Administered Dose 0.4 mg .ROUTE .STK-MED ONE Stop: 11/12/20 07:05 Lidocaine (Xylocaine-Mpf 2%) Confirm Administered Dose 5 ml .ROUTE .STK-MED ONE Stop: 11/12/20 07:05 Midazolam HCl (Versed 1 Mg/Ml) Confirm Administered Dose 2 mg .ROUTE .STK-MED ONE Stop: 11/12/20 07:03 Ondansetron HCl (Zofran) Confirm Administered Dose 4 mg .ROUTE .STK-MED ONE Stop: 11/12/20 07:05 Propofol (Diprivan 20 Ml) Confirm Administered Dose 200 mg .ROUTE .STK-MED ONE Stop: 11/12/20 07:03 Rocuronium [place] (Rocuronium [place]) Confirm Administered Dose 50 mg .ROUTE .STK-MED ONE Stop: 11/12/20 07:05
[2020-11-12] MEDS ORDERED: Piperacillin/Tazobactam 3.375 GM in Sodium Chloride 0.9% 50 ML IV ONE (08:00)
[2020-11-12] MEDS ORDERED: 50% Dextrose in Water 50 ML Syringe IVPUSH PRN (08:39)
[2020-11-12] MEDS ORDERED: Atropine 0.1 MG/ML 10 ML Syringe IVPUSH PRN ×2 (08:39)
[2020-11-12] MEDS ORDERED: EPINEPHrine 1:10,000 1 MG/10 ML Syringe IVPUSH PRN (08:39)
[2020-11-12] MEDS ORDERED: Naloxone 0.4 MG/ML Syringe IVPUSH PRN (08:39)
[2020-11-12] MEDS ORDERED: Albuterol 0.083% 2.5 MG/3 ML Neb Soln NEB PRN (08:39)
[2020-11-12] MEDS ORDERED: Fluorescein 5 ML Vial ONE (08:57)
[2020-11-12] MEDS ORDERED: Octyl 2-Cyanoacrylate 1 Tube ONE ×2 (08:57→09:40)
[2020-11-12] MEDS ORDERED: ePHEDrine 50 MG/ML SDV ONE (09:23)
[2020-11-12] MEDS ORDERED: fentaNYL 100 MCG/2 ML SDV ONE (09:39)
[2020-11-12] MEDS ORDERED: Furosemide 40 MG/4 ML VIAL ONE (09:43)
[2020-11-12] MEDS ORDERED: HYDROmorphone 2 MG/ML Syringe ONE ×2 (10:23→12:40)
[2020-11-12] MEDS ORDERED: Ketorolac 30 MG/ML SDV ONE (10:30)
--- NOTE | 2020-11-12 11:19 | PCM.OPNOTE ---
- General Post-Op/Procedure Note Date of Surgery/Procedure: 11/12/20 Operative Procedure(s): 1. Exam under anesthesia. 2. Insertion of intrauterine device. 3. Vaginal wall cyst excision. 4. Cystoscopy Findings: Anteverted uterus. Right vaginal wall cyst, consistent with Wolffian duct remnant. Prominent ureteral rims bilateral within the bladder. Pre Op Diagnosis: 1. Menorrhagia. 2. Dysmenorrhea. 3. Pelvic pain. 4. Right vaginal wall cyst. 5. Bladder cyst Post-Op Diagnosis: Same Anesthesia Technique: General ET Tube Primary Surgeon: Anabella Herrera Secondary Surgeon: Urmila Rodriguez Web Analytics Specialist: Kristie Mcghee ([id number]) Pathology: Vaginal cyst wall Purulent drainage from cyst Fluid Replacement, Intraop: 2,500 (for combined case with Dr. Capone) Output, Urine Amount: 180 EBL in mLs: 500 (During gynecologic portion of procedure) Complications: None known Condition: Good Free Text/Narrative:: Intake & Output 11/11/20 11/12/20 11/12/20 22:59 06:59 14:59 Output Total 100 Balance -100 Dictation #[id number]
[2020-11-12] MEDS: fentaNYL 100 MCG/2 ML SDV IVPUSH PRN ×4 (11:28→11:43)
--- NOTE | 2020-11-12 12:24 | PCM.POSTAN ---
POST ANESTHESIA ASSESSMENT - MENTAL STATUS Mental Status: Alert, Oriented - VITAL SIGNS Vital Signs: Last Vital Signs Temp 97.3 F 11/12/20 06:50 Pulse 122 H 11/12/20 11:47 Resp 20 11/12/20 11:47 BP 120/71 11/12/20 11:47 Pulse Ox 95 11/12/20 11:47 - RESPIRATORY Respiratory Status: Respiratory Rate WNL, Airway Patent, O2 Saturation Stable - CARDIOVASCULAR CV Status: Pulse Rate WNL, Blood Pressure Stable - GASTROINTESTINAL GI Status: No Symptoms - POST OP HYDRATION Hydration Status: Adequate & Stable
[2020-11-12] MEDS ORDERED: Acetaminophen/oxyCODONE 325-5 MG Tab PO ONE ×3 (12:35→13:47)
--- NOTE | 2020-11-12 12:39 | OR ---
SURGEON: MIREYA STOKES MD DATE OF PROCEDURE: 11/12/2020 PREOPERATIVE DIAGNOSIS: Symptomatic cholelithiasis. POSTOPERATIVE DIAGNOSIS: Symptomatic cholelithiasis. PROCEDURE PERFORMED: Laparoscopic cholecystectomy. PRIMARY SURGEON: Mireya Stokes MD ANESTHESIA: General endotracheal anesthesia. FLUIDS: 1300 mL of crystalloid. ESTIMATED BLOOD LOSS: 5 mL. URINE OUTPUT: 100 mL. FINDINGS: Normal-appearing gallbladder containing a large stone. There were omental adhesions to liver capsule, which were taken down. COMPLICATIONS: None. INDICATIONS: The patient is a 30-year-old female who came to my clinic complaining of postprandial right upper quadrant pain. She was found to have a large gallstone on ultrasound. Given her symptomatic cholelithiasis, I explained the need for a laparoscopic, possible open, cholecystectomy. I explained the procedure, expected perioperative course, and the risks. The patient verbalized understanding and wishes to proceed. She will be undergoing a gynecologic procedure after my procedure. I coordinated with her physician as well. PROCEDURE IN DETAIL: The patient was brought into the OR and placed on the OR table in supine position. A time-out was completed verifying the patient's name, age, date of , allergies, and procedure to be performed. General endotracheal anesthesia was induced. A Short catheter was placed and the left arm was tucked the patient's side. The abdomen was prepped and draped in usual standard fashion. I anesthetized the infraumbilical fold with 0.5% Marcaine plain. The patient had a previous laparoscopic appendectomy. Using an 11 blade, I made an incision through her previous scar. Using electrocautery, I dissected down to level of subcutaneous fat. I then bluntly dissected down to the fascia. The fascia was elevated with John's and incised sharply with curved Francisco scissors. I grasped the peritoneum. This was opened sharply as well. Stay sutures were placed on either side of the fascia using 0 Vicryl suture. A 12 mm Lasha trocar was inserted in the abdomen and it was insufflated. A 5 mm 30-degree scope was placed into the abdomen, and I inspected the area underneath my initial trocar placement. No damage to surrounding structures was noted. The patient was placed in reverse Trendelenburg position and airplaned slightly to the left. 5 mm trocars were placed in the following locations under direct visualization; one in the epigastric area, one in the right flank, and one 2 fingerbreadths below the right subcostal margin in the midclavicular line. The dome of the gallbladder was grasped and elevated. Just lateral to the gallbladder, the omentum was adhered to the liver capsule. Using hook cautery, I took these adhesions down to allow better mobility of the liver and my gallbladder. I then identified the infundibulum. This was grasped to allow for better manipulation. Using a combination of blunt dissection and hook cautery, I dissected around the proximal half of the gallbladder. Once I could identify my cystic duct and artery and had cleared away one-third of the proximal cystic plate. A photograph was taken of my critical view. I then doubly clipped and ligated my cystic duct and artery. The remainder of the attachments of the gallbladder were taken down from the cystic plate using hook cautery. A small rent was made in the body of the gallbladder and a small amount of bile was spilled. Once the gallbladder was freed from its attachments to the liver bed, it was placed in an Endo Catch bag and removed through the infraumbilical port site. I irrigated my operative field and suctioned this out. A photograph was taken of my operative field. It appeared hemostatic with no evidence of any bile leakage. A photograph was taken of the right upper quadrant as well as the pelvis. The 5 mm trocars were then removed under direct visualization and the abdomen was allowed to desufflate. The 12 mm trocar was removed as well. The fascia at the infraumbilical port site was closed with interrupted 0 Vicryl sutures. The subcutaneous fat layer was closed with interrupted 3-0 Vicryl sutures. The skin was closed with a running 4-0 Monocryl stitch. The 5 mm trocar sites were closed with interrupted 4-0 Monocryl sutures. Dermabond and sterile dressings were applied. The patient tolerated the procedure well with no immediate complications. The case was then turned over to Dr. Herrera for the gynecologic portion of the procedure. Please see her note for further details. JOE / RUKHSANA /[id number]
[2020-11-12] MEDS ORDERED: HYDROmorphone 2 MG/ML Syringe IVPUSH ONE (12:44)
--- NOTE | 2020-11-12 12:59 | OR ---
SURGEON: ANABELLA COWART MD DATE OF PROCEDURE: 11/12/2020 PROCEDURES: 1. Exam under anesthesia. 2. Insertion of intrauterine device. 3. Vaginal wall cyst excision. 4. Cystoscopy. PREOPERATIVE DIAGNOSES: 1. Menorrhagia. 2. Dysmenorrhea. 3. Pelvic pain. 4. Right vaginal wall cyst. 5. Bladder cyst. POSTOPERATIVE DIAGNOSES: 1. Menorrhagia. 2. Dysmenorrhea. 3. Pelvic pain. 4. Right vaginal wall cyst. 5. Bladder cyst. ANESTHESIA: General endotracheal. PRIMARY SURGEON: Anabella Cowart MD, present for entire procedure. SECONDARY SURGEON: Urmila Rodriguez M.D. CIRCUIT COURT JUDGE: Kristie Mcghee MS-4 COMPLICATIONS: None known. ESTIMATED BLOOD LOSS: 500 mL. INTRAVENOUS FLUID: 2500 mL of crystalloid for combined case with Dr. Capone. URINE OUTPUT: 180 mL for combined case with Dr. Capone. FINDINGS: Anteverted uterus, right vaginal wall cyst consistent with Wolffian duct remnant. Prominent ureteral rims bilaterally within the bladder. PATHOLOGY: Vaginal cyst wall and purulent drainage of cyst for culture. BRIEF HISTORY: The patient is a 30-year-old 3, para 3 female who has concerns for menorrhagia and pelvic pain. Throughout her workup, she was noted to have a right vaginal wall cyst and 2 small bladder cysts on ultrasound. CT scan was performed to assess for anatomy surrounding the vaginal wall cyst. No genitourinary structures were noted to be involved with the cyst. Due to her irregular heavy bleeding, an endometrial biopsy was performed in office, with benign findings. The patient desired to proceed with intrauterine device for symptoms of menorrhagia and dysmenorrhea. The patient also has a longstanding history of gallbladder issues. She had recently seen Dr. Capone for a consult to perform a cholecystectomy. Her cholecystectomy was performed this morning prior to my portion of the procedure. The patient tolerated that procedure well. PROCEDURE IN DETAIL: After completion of the cholecystectomy, the patient was then placed in the dorsal lithotomy position. A vaginal prep was performed. A Graves speculum was then placed into the vagina, and an Allis clamp was placed at 12 o'clock to stabilize the cervix. The uterus was then sounded to 7 cm, and an Mirena IUD was inserted without difficulty. The IUD strings were then cut. Attention was then turned to the right vaginal wall cyst. The vaginal mucosa overlying the cyst was then excised with a scalpel, and incidentally, the cyst was ruptured, and purulent drainage was noted. Anaerobic and aerobic cultures were then obtained at that time. The cyst wall was then extracted. The remaining space where the cyst occupied was then obliterated using 2-0 Vicryl and repeated pursestring sutures. During this time significant amount of blood loss equaling approximately 500 mL was noted after the space was obliterated. A 3-0 Vicryl was then used to reapproximate the vaginal mucosa along with the labia. Hemostasis was noted at that time. A cystoscopy was then performed, and bilateral ureteral jets were noted, and fluorescein spilled into the bladder. Prominent ureteral rims were noted bilaterally. No cysts were noted at the time of procedure. Photographs were then taken. The scope was then removed from the bladder, and the bladder was then drained. The vagina was then packed with sterile gauze and copious amounts of gel. The patient tolerated the procedure well. Hemostasis was noted following the procedure. Sponge, lap, and needle counts were correct x2. The patient was taken to recovery in stable condition. PATTIE / RUKHSANA /[id number] JOE
--- NOTE | 2020-11-12 15:02 | PCM48HPAN ---
Post Anesthesia Note - EVALUATION WITHIN 48HRS OF ANESTHETIC Vital Signs in Normal Range: Yes Patient Participated in Evaluation: Yes Respiratory Function Stable: Yes Airway Patent: Yes Cardiovascular Function Stable: Yes Hydration Status Stable: Yes Pain Control Satisfactory: Yes Nausea and Vomiting Control Satisfactory: Yes Mental Status Recovered: Yes Vital Signs: Last Vital Signs Temp 97.3 F 11/12/20 06:50 Pulse 122 H 11/12/20 11:47 Resp 20 11/12/20 11:47 BP 120/71 11/12/20 11:47 Pulse Ox 95 11/12/20 11:47
[2020-11-12 19:04] VITALS: BP 120/74; PULSE 96
== END 2020-11-12 15:00 | disposition home or self-care (01) ==
LOC: MW.SDS 06:42
PROVIDERS: ATTEND Obstetrics & Gynecology
DX: K80.10 Calculus of gallbladder with chronic cholecystitis without obstruction (principal); N89.8 Other specified noninflammatory disorders of vagina; F17.200 Nicotine dependence, unspecified, uncomplicated; Z88.2 Allergy status to sulfonamides; Z88.1 Allergy status to other antibiotic agents; Z88.8 Allergy status to other drugs, medicaments and biological substances; Z79.899 Other long term (current) drug therapy; E66.9 Obesity, unspecified; Z68.34 Body mass index [BMI] 34.0-34.9, adult
CPT/HCPCS: 36415; 47562; 57135; 58300; 84703; 85027; 87070; 87075; 87077; 87186; 87205; 88304; 88305; 88312; A9270; J1100; J1170; J1940; J2250; J2543; J2704; J3010; J3490; J7120; 00790; J1885; J2405

== ENCOUNTER 2020-11-13 16:50 | Emergency (ER) | payer BC ==
--- NOTE | 2020-11-13 17:05 | EDM.PDOC ---
<Juan Alberto Waldron - Last Filed: 11/13/20 18:40> ED HPI GENERAL MEDICAL PROBLEM - General Chief Complaint: Abdominal Pain Stated Complaint: SICK Time Seen by Provider: 11/13/20 16:56 - History of Present Illness INITIAL COMMENTS - FREE TEXT/NARRATIVE: 30-year-old female with a history of menorrhagia and dyspareunia as well as a history of symptomatic cholelithiasis who yesterday underwent laparoscopic cholecystectomy by Dr. Capone followed by renal cyst removal Mirena IUD placement and cystoscopy by Dr. Herrera she by documentation tolerated both of these procedures well and was discharged. She presents today with 9 out of 10 vaginal pain that has been constant and stable since the procedure yesterday. She reports that she has not experienced relief from the pain medications at home. She denies any remaining packing material she denies any vaginal discharge or bleeding. No fevers. She does report some degree of abdominal pain but she says that the abdominal pain is relatively minor and is quite overshadowed by the vaginal pain. vaginal wall (post-op site) Pain Score (Numeric/FACES): 9 - Related Data Allergies Allergy/AdvReac Type Severity Reaction Status Date / Time adapalene Allergy skin Verified 11/13/20 17:30 reaction sulfamethoxazole Allergy Swelling Verified 11/13/20 17:30 [From Bactrim] trimethoprim [From Bactrim] Allergy Swelling Verified 11/13/20 17:30 Home Meds: Home Meds Acetaminophen [Tylenol] 2 tab PO ASDIRECTED PRN 09/15/20 [History] Escitalopram Oxalate [Lexapro] 20 mg PO DAILY 09/15/20 [History] Methylphenidate HCl [Ritalin] 20 mg PO BID 09/15/20 [History] Omeprazole 20 mg PO DAILY PRN 09/15/20 [History] cloNIDine HCL [Clonidine HCl] 2 tab PO BEDTIME 09/15/20 [History] norgestimate-ethinyl estradioL [Sprintec 28 Day Tablet] 1 tab PO DAILY 09/15/20 [History] oxyCODONE HCl/Acetaminophen [Percocet 5-325 mg Tablet] 1 tab PO Q6H PRN 3 Days #10 tablet 11/14/20 [Rx] Past Medical History HEENT History: Reports: Other (See Below) Other HEENT History: upper and lower permanent dental retainers Cardiovascular History: Reports: None Respiratory History: Reports: None Gastrointestinal History: Reports: GERD Genitourinary History: Reports: Renal Calculus PROCESS TECH History: Reports: , Spontaneous Other PROCESS TECH History: hx ETOP Musculoskeletal History: Reports: None Neurological History: Reports: Seizure 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 Psychiatric History: Reports: ADHD, Anxiety, Depression, Panic Attack, Suicide Attempt Endocrine/Metabolic History: Reports: Obesity/BMI 30+ Hematologic History: Reports: None Immunologic History: Reports: None Oncologic (Cancer) History: Reports: None Dermatologic History: Reports: None - Infectious Disease History Infectious Disease History: Reports: None - Past Surgical History Head Surgeries/Procedures: Reports: None HEENT Surgical History: Reports: Oral Surgery Other HEENT Surgeries/Procedures: wisdom teeth extraction Cardiovascular Surgical History: Reports: None Respiratory Surgical History: Reports: None GI Surgical History: Reports: Appendectomy Female Surgical History: Reports: None Endocrine Surgical History: Reports: None Neurological Surgical History: Reports: None Musculoskeletal Surgical History: Reports: None Oncologic Surgical History: Reports: None Dermatological Surgical History: Reports: None Social & Family History - Family History Family Medical History: No Pertinent Family History OBGYN: Reports: Neurological: Reports: Alzheimers Disease - Caffeine Use Caffeine Use: Reports: None ED ROS GENERAL - Review of Systems Review Of Systems: See Below Free Text/Narrative/Comment: General: No fever. Respiratory: No shortness of breath. Cardiac: No chest pain. Gastrointestinal: No nausea, vomiting, positive for mild abdominal pain : Per HPI Musculoskeletal: No myalgias/arthralgias. ED EXAM, GENERAL - Physical Exam Exam: See Below Free Text/Narrative:: General Appearance: No acute distress, appears comfortable Skin: No rash HEENT: Normocephalic/atraumatic, sclera anicteric, mucous membranes moist Neck: Normal range of motion Chest and Lungs: Bilateral breath sounds, clear to auscultation Cardiovascular: Regular rate and rhythm, no murmur Abdomen: Soft, non-tender : Postsurgical site in the right distal vaginal wall appears to be intact no active bleeding no drainage patient with significant tenderness and some fullness deep to the stitches Psychiatric: Appropriate, cooperative Departure - Departure Disposition: Home, Self-Care 01 Clinical Impression: Post-operative pain - Discharge Information Prescriptions: oxyCODONE HCl/Acetaminophen [Percocet 5-325 mg Tablet] 1 tab PO Q6H PRN 3 Days #10 tablet PRN Reason: Pain Instructions: Pain Relief Before and After Surgery, Pain Medicine Instructions, [id number], Acute Pain, Adult Referrals: PCP,None [Primary Care Provider] - Forms: ED Department Discharge Additional Instructions: You were evaluated today on an emergent basis. At this time in discussion with Dr. Thompson we did use injectable lidocaine with epinephrine for symptomatic relief. I recommend continued use of your pain medications prescribed by the surgeon including ibuprofen. I recommend the use of ice 20 minutes 4 times a day for continued relief. If you have any worsening bleeding or pus drainage please return to the emergency department. Please follow-up with your surgeon. [facility] [address] [place] [id number] [address] [id number] The patient is informed of any results of their evaluation and diagnostic workup and all questions are answered. They are given discharge instructions and return precautions. The patient is stable for discharge. The patient states they u nderstand and agree with the plan and that they will return if their symptoms get worse or if they have any new concerns. The following information is given to patients seen in the emergency department who are being discharged to home. This information is to outline your options for follow-up care. We provide all patients seen in our emergency department with a follow-up referral. The need for follow-up, as well as the timing and circumstances, are variable depending upon the specifics of your emergency department visit. If you don't have a primary care physician on staff, we will provide you with a referral. We always advise you to contact your personal physician following an emergency department visit to inform them of the circumstance of the visit and for follow-up with them and/or the need for any referrals to a consulting specialist. The emergency department will also refer you to a specialist when appropriate. This referral assures that you have the opportunity for follow-up care with a specialist. All of these measure are taken in an effort to provide you with optimal care, which includes your follow-up. Under all circumstances we always encourage you to contact your private physician who remains a resource for coordinating your care. When calling for follow-up care, please make the office aware that this follow-up is from your recent emergency room visit. If for any reason you are refused follow-up, please contact the [facility] Emergency Department at and asked to speak to the emergency department charge nurse. - Assessment/Plan Assessment:: 30-year-old female presenting with vaginal pain 1 day status post procedure. Patient discussed with Dr. Herrera. She suspects that given the patient's multiple children and her lack of help at home she is been much more active than was recommended by Dr. Herrera. Dr. Herrera states the cyst that was removed was quite distal in the vaginal canal and should be easily visible without any speculum. Request close evaluation to assess for any signs of hematoma or ongoing bleeding recommends trial of topical lidocaine could also consider local injection of lidocaine with epinephrine to try and buy her some temporary relief. Some significant pain is not unexpected given the procedure that she had. Given this conversation labs are pending further evaluation with potential need for CT to be assessed at the time of pelvic. We will start with viscous lidocaine during initial exam and then reassess for any ongoing need for additional therapy. Patient to be given morphine and Zofran as well. 1751: Patient with significant discomfort with vaginal exam on my direct inspection of the area I see no active bleeding or signs of suture rupture there is significant tenderness and some fullness deep to the stitches possibility of hematoma must be considered given the operative course of my prior discussion with Dr. Herrera. Given this CT scan of the pelvis with contrast has been ordered to further assess. Viscous lidocaine was applied throughout the surgical site and vaginal introitus is being temporarily held in place via a single 4 x 4 this will be removed prior to CT imaging. I do not have a clinical concern regarding the cholecystectomy site and she has no significant upper abdominal tenderness she has no GI symptoms. And so only a CT scan of the pelvis has been ordered. Will reassess her pain 20 minutes following the morphine dose. 1820: Pt's CT is pending. Pt just returned from imaging. Reports pain only minimally improved will give a dose of Dilaudid while we await the imaging read. 1655: Pt signed out to Dr. Burris pending imaging results, discussion with Dr. Herrera and final disposition. <Kyle Burris - Last Filed: 11/15/20 05:17> ED HPI GENERAL MEDICAL PROBLEM - History of Present Illness INITIAL COMMENTS - FREE TEXT/NARRATIVE: Patient was signed out to me by Dr. Waldron pending imaging results at 7PM I did reevaluate the patient and patient had continued pain. Therefore I provided her with an additional 0.5 mg of Dilaudid. Labs reviewed which did reveal a decreased hemoglobin at 10.2 down from 12.2. Otherwise CBC was unremarkable. CMP PE revealed hypokalemia at 3.3 otherwise un remarkable. The radiological images were viewed by myself along with reading the report from the radiologist. Pelvic CT revealed minimal right perineal soft tissue thickening. No large hematoma. There is small amount of free fluid in the pelvis. There is mild subcutaneous soft tissue stranding about the umbilicus with skin thickening After imaging I did contact Dr. Herrera and discussed the results with her. At this time the decrease in hemoglobin is expected given the recent surgery and given that there is no findings of hematoma or abscess on imaging the patient should be stable for discharge. She stated that she recommended continued use of her pain medications at home, ice, and the restrictions that discussed about including lifting restrictions. As per previous discussion we can use injectable lidocaine with epinephrine for continued temporary pain relief. On my reevaluation, the patient did have continued pain. Therefore I did discuss with patient that we could use some injectable lidocaine. She was amenable to this plan. Using approximately 8 cc of lidocaine with epinephrine I did inject the area around the surgical stitches. I did discuss with patient at this time she would be stable for discharge. I did discuss what her pl sql developer had discussed with me. I discussed that if she had any new or worsening symptoms such as bleeding, fever she should return to the emergency department. Otherwise she should follow up with gynecology. She was amenable to discharge at this time and had no further questions DISPOSITION: The patient was discharged home in stable condition. The patient will follow up with gynecology at her scheduled follow-up appointment CONDITION: Fair PROCEDURES: None FINAL IMPRESSION(S)/DIAGNOSES: 1. Acute postoperative pain Kyle Burris M.D. Course - Vital Signs Last Recorded V/S: Last Vital Signs Temp 36.2 C 11/13/20 19:27 Pulse 67 11/13/20 21:15 Resp 18 11/13/20 21:15 BP 124/67 11/13/20 21:15 Pulse Ox 97 11/13/20 21:15 - Orders/Labs/Meds Labs: Laboratory Tests 11/13/20 11/13/20 Range/Units 17:35 17:35 WBC 7.83 (4.0-11.0) K/uL RBC 3.37 L (4.30-5.90) M/uL Hgb 10.2 L (12.0-16.0) g/dL Hct 31.4 L (36.0-46.0) % MCV 93.2 (80.0-98.0) fL MCH 30.3 (27.0-32.0) pg MCHC 32.5 (31.0-37.0) g/dL RDW Std Deviation 45.8 (28.0-62.0) fl RDW Coeff of Charlie 13 (11.0-15.0) % Plt Count 220 (150-400) K/uL MPV 9.80 (7.40-12.00) fL Neut % (Auto) 54.7 (48.0-80.0) % Lymph % (Auto) 35.6 (16.0-40.0) % [place] % (Auto) 7.0 (0.0-15.0) % Eos % (Auto) 2.2 (0.0-7.0) % Baso % (Auto) 0.5 (0.0-1.5) % Neut # (Auto) 4.3 (1.4-5.7) K/uL Lymph # (Auto) 2.8 H (0.6-2.4) K/uL [place] # (Auto) 0.6 (0.0-0.8) K/uL Eos # (Auto) 0.2 (0.0-0.7) K/uL Baso # (Auto) 0.0 (0.0-0.1) K/uL Nucleated RBC % 0.0 /100WBC Nucleated RBCs # 0 K/uL Sodium 140 (136-145) mmol/L Potassium 3.3 L (3.5-5.1) mmol/L Chloride 106 (98-107) mmol/L Carbon Dioxide 24.3 (21.0-32.0) mmol/L BUN 4 L (7.0-18.0) mg/dL Creatinine 1.0 (0.6-1.0) mg/dL Est Cr Clr Drug Dosing TNP Estimated GFR (MDRD) > 60.0 ml/min Glucose 101 (74-106) mg/dL Calcium 8.1 L (8.5-10.1) mg/dL Total Bilirubin 0.1 L (0.2-1.0) mg/dL AST 29 (15-37) IU/L ALT 48 (14-63) IU/L Alkaline Phosphatase 63 (46-116) U/L Total Protein 6.4 (6.4-8.2) g/dL Albumin 3.0 L (3.4-5.0) g/dL Globulin 3.4 (2.6-4.0) g/dL Albumin/Globulin Ratio 0.9 (0.9-1.6) Meds: Medications Discontinued Medications Generic Name Dose Route Start Last Admin Trade Name Freq PRN Reason Stop Dose Admin Hydromorphone HCl 1 mg 11/13/20 18:25 11/13/20 18:30 Dilaudid IVPUSH 11/13/20 18:26 1 mg ONETIME ONE Administration Hydromorphone HCl 1 mg 11/13/20 20:00 11/13/20 20:05 Dilaudid IVPUSH 11/13/20 20:01 1 mg ONETIME ONE Administration Iopamidol 80 ml 11/13/20 18:26 11/13/20 18:26 Isovue Multipack-370 (76%) IVPUSH 11/13/20 18:27 80 ml ONETIME ONE Administration Lidocaine HCl 10 ml 11/13/20 17:20 11/13/20 17:50 Xylocaine 2% Jelly MUCMEM 11/13/20 17:21 Not Given ONETIME ONE Lidocaine HCl Confirm 11/13/20 17:35 11/13/20 17:50 Xylocaine 2% Viscous Administered 11/13/20 17:36 Not Given Dose 15 ml .ROUTE .STK-MED ONE Lidocaine HCl 15 ml 11/13/20 17:48 11/13/20 17:48 Xylocaine 2% Viscous TOP 11/13/20 17:49 15 ml ONETIME ONE Administration Lidocaine/Epinephrine Confirm 11/13/20 19:37 11/13/20 19:41 Xylocaine 1% With Epinephrine 1:100,000 Administered 11/13/20 19:38 Not Given Dose 20 ml .ROUTE .STK-MED ONE Lidocaine/Epinephrine 20 ml 11/13/20 19:38 11/13/20 19:41 Xylocaine 1% With Epinephrine 1:100,000 INJECT 11/13/20 19:39 20 ml ONETIME ONE Administration Morphine Sulfate 4 mg 11/13/20 17:15 11/13/20 17:32 Morphine IVPUSH 11/13/20 17:16 4 mg ONETIME ONE Administration Ondansetron HCl 4 mg 11/13/20 17:15 11/13/20 17:31 Zofran IVPUSH 11/13/20 17:16 4 mg ONETIME ONE Administration Departure - Departure Time of Disposition: 21:04 Condition: Fair - Discharge Information *PRESCRIPTION DRUG MONITORING PROGRAM REVIEWED*: No *COPY OF PRESCRIPTION DRUG MONITORING REPORT IN PATIENT SUE: No
[2020-11-13] MEDS ORDERED: Ondansetron 4 MG/2 ML SDV IVPUSH ONE (17:15)
[2020-11-13] MEDS ORDERED: Morphine 4 MG/ML Syringe IVPUSH ONE (17:15)
[2020-11-13] MEDS ORDERED: Lidocaine 2% Jelly 30 ML Tube MUCMEM ONE (17:20)
[2020-11-13] MEDS ORDERED: Lidocaine 2% Viscous Solution 15 ML Cup ONE (17:35)
[2020-11-13] MEDS ORDERED: Lidocaine 2% Viscous Solution 15 ML Cup TOP ONE (17:48)
[2020-11-13 18:01] LABS: BLOOD UREA NITROGEN,BUN 4 mg/dL (7.0-18.0); CHLORIDE,CL 106 mmol/L (98-107); GLUCOSE RANDOM 101 mg/dL (74-106); POTASSIUM,K 3.3 mmol/L (3.5-5.1); SODIUM,NA 140 mmol/L (136-145)
[2020-11-13 18:16] LABS: CARBON DIOXIDE,CO2 24.3 mmol/L (21.0-32.0)
[2020-11-13] MEDS ORDERED: HYDROmorphone 1 MG/ML Syringe IVPUSH ONE ×2 (18:25→20:00)
[2020-11-13] MEDS ORDERED: Iopamidol 755 MG/ML 500 ML Multipack Bottle IVPUSH ONE (18:26)
--- NOTE | 2020-11-13 19:09 | CT ---
Indication: Status post surgical vaginal pain. S/p 1 day excision of right distal vaginal wall cyst significant bleeding during procedure no severe pain. Technique: Contrast enhanced CT pelvis with 80 mL Isovue 370 Comparison: No comparison Findings: Mild subcutaneous soft tissue stranding about the umbilicus with some mild skin thickening. Presumed appendectomy change. 2 cm right ovarian cyst. Urinary bladder is unremarkable. IUD in the uterus small amount of free fluid in the pelvis. Bowel is unremarkable no free intra-abdominal air. There is small amount of free fluid in the pelvis. Minimal soft tissue thickening of the right perineum. No large hematoma. Impression: 1. Minimal right perineal soft tissue thickening. No large hematoma. 2. Small amount free fluid in pelvis IUD in the uterus. 3. Mild subcutaneous soft tissue stranding about the umbilicus with skin thickening this could be lower correlated clinically with possible cellulitis. Please note that all CT scans at this facility use dose modulation, iterative reconstruction, and/or weight-based dosing when appropriate to reduce radiation dose to as low as reasonably achievable. Dictated by Corinna Delcid MD @ Nov 13 2020 6:53PM (Electronically Signed)
[2020-11-13] MEDS ORDERED: Lidocaine 1% with EPINEPHrine 1:100,000 20 ML MDV ONE (19:37)
[2020-11-13] MEDS ORDERED: Lidocaine 1% with EPINEPHrine 1:100,000 20 ML MDV INJECT ONE (19:38)
[2020-11-13 21:40] VITALS: BP 124/67; PULSE 67
== END 2020-11-13 21:15 | disposition home or self-care (01) ==
LOC: MW.ED 16:50
DX: G89.18 Other acute postprocedural pain (principal); K21.9 Gastro-esophageal reflux disease without esophagitis; E66.9 Obesity, unspecified; Z68.39 Body mass index [BMI] 39.0-39.9, adult; Z88.8 Allergy status to other drugs, medicaments and biological substances; Z88.2 Allergy status to sulfonamides; Z88.1 Allergy status to other antibiotic agents; Z79.899 Other long term (current) drug therapy
CPT/HCPCS: 36415; 72193; 80053; 85025; 96374; 96375; 96376; 99283; A9270; J1170; J2270; J2405; Q9967; 99284

== ENCOUNTER 2022-01-06 22:30 | Emergency (ER) | payer BC ==
[2022-01-06] MEDS ORDERED: LORazepam 2 MG/ML SDV IVPUSH ONE (22:53)
[2022-01-06] MEDS ORDERED: Haloperidol Lactate 5 MG/ML SDV IM STA (22:53)
[2022-01-06] MEDS ORDERED: LORazepam 1 MG Tab PO STA (22:55)
[2022-01-06] MEDS ORDERED: diphenhydrAMINE 50 MG Cap PO STA (22:56)
[2022-01-06 23:55] LABS: ACETAMINOPHEN <2.0 ug/mL; BLOOD UREA NITROGEN,BUN 8 mg/dL (7.0-18.0); CARBON DIOXIDE,CO2 23.1 mmol/L (21.0-32.0); CHLORIDE,CL 103 mmol/L (98-107); GLUCOSE RANDOM 106 mg/dL (74-106); POTASSIUM,K 3.5 mmol/L (3.5-5.1); SODIUM,NA 139 mmol/L (136-145)
[2022-01-07] MEDS ORDERED: LORazepam 1 MG Tab PO SCH (06:00)
[2022-01-07] MEDS ORDERED: Nicotine 21 MG/24 Hr Patch TRDERM ONE (08:34)
[2022-01-07 08:38] VITALS: BP 137/77; PULSE 76
== END 2022-01-07 08:41 | disposition home or self-care (01) ==
LOC: MW.ED 22:30
DX: F22 Delusional disorders (principal); G47.00 Insomnia, unspecified; F41.9 Anxiety disorder, unspecified; K21.9 Gastro-esophageal reflux disease without esophagitis; Z90.49 Acquired absence of other specified parts of digestive tract; Z88.8 Allergy status to other drugs, medicaments and biological substances; Z88.2 Allergy status to sulfonamides; Z79.899 Other long term (current) drug therapy
CPT/HCPCS: 36415; 80053; 80143; 80179; 80305; 80307; 84703; 85025; 87635; 93005; 96372; 99285; A9270; J1630; 93010; U0002

== ENCOUNTER 2022-01-08 16:02 | Emergency (ER) | payer BC ==
[2022-01-08] MEDS ORDERED: Haloperidol 5 MG Tab PO ONE (19:06)
[2022-01-08 19:21] VITALS: BP 151/109; PULSE 107
== END 2022-01-08 19:21 | disposition home or self-care (01) ==
LOC: MW.ED 16:02
DX: G47.00 Insomnia, unspecified (principal); F41.9 Anxiety disorder, unspecified; K21.9 Gastro-esophageal reflux disease without esophagitis; E66.9 Obesity, unspecified; Z68.28 Body mass index [BMI] 28.0-28.9, adult; Z90.49 Acquired absence of other specified parts of digestive tract; Z79.899 Other long term (current) drug therapy; Z88.8 Allergy status to other drugs, medicaments and biological substances; Z88.2 Allergy status to sulfonamides
CPT/HCPCS: 99283; A9270